=== PATIENT | female | born 1940 | race Asian ===

== ENCOUNTER 2021-09-07 06:34 | Inpatient (IN) | payer MEDICARE, OTHER, SELFPAY ==
[2021-09-07] VITALS (19 sets, daily range): BP systolic 125–177; BP diastolic 68–107; PULSE 70–90; RESP 16–20; TEMP 36.4–37.1; O2SAT 84–98; BMI 24.8; BMI 23.4
--- NOTE | 2021-09-07 06:50 | DI.RAD.S_ITS ---
PROCEDURE: XR HIP W PEL IF DONE RT 2V INDICATIONS: fall/pain TECHNIQUE: AP pelvis with lateral view(s) of the right hip(s). COMPARISON: None. FINDINGS: Bones: No definite fracture is identified. However, the right hip appears foreshortened. The right hip is rotated on the AP projection. No dislocation. Bilateral hip joint space narrowing. Pelvic ring appears intact. No suspicious bony lesions. Soft tissues: The visualized bowel gas pattern is normal. No suspicious soft tissue calcifications. Vascular calcifications. IMPRESSION: Exam is limited by right hip rotation. No definite fracture is identified. However, the right hip appears foreshortened. CT bony pelvis would be helpful for further evaluation. Alternatively, repeat radiographs could be performed. Recommendation was conveyed to the emergency department shortly after dictation. Dictated by: Mick Singh M.D. on 09/07/2021 at 8:22 Approved by: Mick Singh M.D. on 09/07/2021 at 8:27
[2021-09-07] MEDS: MORPHINE 2 MG/ML INJ IV ×3 (07:08→22:30)
[2021-09-07 07:22] LABS: Add Manual Diff / Slide Review NO; Basophils Absolute Auto 100 /uL (0-100); Basophils Percent Auto 0.6 % (0-2); Eosinophils Absolute Auto 200 /uL (0-450); Eosinophils Percent Auto 1.8 % (2-4); Hematocrit 35.7 % (36-46); Hemoglobin 11.7 g/dL (12.0-16.0); Lymphocytes Absolute Auto 1000 /uL (1100-4500); Lymphocytes Percent Auto 11.7 % (25-40); Mean Corpuscular HGB Conc 32.9 % (30-36); Mean Corpuscular Hemoglobin 32.2 PG (26-34); Monocytes Absolute Auto 600 /uL (0-900); Neutrophils Absolute Auto 6900 /uL (1500-7000); Neutrophils Percent Auto 78.9 % (50-75); Platelet Count 276 X10^3/uL (150-400); Red Blood Cell Count 3.65 X10^6/uL (4.0-5.2); Red Cell Distribution Width 15.9 % (11.6-14.8); White Blood Cell Count 8.8 X10^3/uL (4.5-11.0)
[2021-09-07 07:34] LABS: Alanine Aminotransferase 16 IU/L (<35); Albumin 3.5 g/dL (3.5-5.0); Alkaline Phosphatase 90 U/L (38-126); Aspartate Aminotransferase 26 IU/L (14-36); BUN Creatinine Ratio 26.6 (6-22); Bilirubin Total 0.7 mg/dL (0.2-1.3); Blood Urea Nitrogen 51 mg/dL (7-17); Calcium 8.4 mg/dL (8.4-10.2); Carbon Dioxide 25 mmol/L (22-32); Chloride 106 mmol/L (98-107); Estimated Glomerular Filt Rate 25.1 mL/min (>60); Globulin 3.4 g/dL (1.7-4.1); Glucose 132 mg/dL (80-110); HEMOLYSIS < 15 (0-50); Potassium 3.8 mmol/L (3.4-5.1); Sodium 140 mmol/L (137-145); Total Protein 6.9 g/dL (6.3-8.2)
--- NOTE | 2021-09-07 07:54 | ED.FALL ---
HPI - Fall General Chief Complaint: Fall Stated Complaint: GLF Time Seen by Provider: 09/07/21 06:50 Source: patient and EMS Mode of arrival: EMS Limitations: language barrier History of Present Illness HPI Narrative: Patient is an 80-year-old female who arrived by EMS for evaluation of right hip pain. She is on Eliquis for atrial fibrillation. Earlier this morning she was leaving the bathroom when she slipped and fell and landed on her left hip. She did not hit her head. No loss of consciousness. Is unable to walk afterwards. Reports no other injurie from the event. HPI and review of systems is somewhat limited given her language barrier. The provider who initially saw the patient tried to use the language line however the patient seem to have difficulty with this. They would ask her questions in Indonesian but the patient would answer in Lao. She stated that she was okay not using the language line when I performed my evaluation. Her was also at bedside. Related Data Home Medications Medication Instructions Recorded Confirmed CALCIUM CARBONATE/VITAMIN D3 #0 11/21/10 (Oyster Shell Calcium-Vit D Tab) FELODIPINE (Felodipine ER) #0 11/21/10 FLUTICASONE 50MCG DESI INH- #0 11/21/10 (FLUTICASONE PROPIONATE) Fluticasone Propionate/[place] #0 11/21/10 (Advair Diskus 100/50) HYDROCHLOROTHIAZIDE (Hydrodiuril / #0 11/21/10 Hctz) LISINOPRIL (Zestril / Prinivil) #0 11/21/10 MULTIVITAMIN (Multivitamin #0 11/21/10 -) Simvastatin (Zocor) #0 11/21/10 Tiotropium [place] (Spiriva) #0 11/21/10 Allergies Allergy/AdvReac Type Severity Reaction Status Date / Time No Known Drug Allergies Allergy Verified 09/07/21 06:48 Review of Systems Constitutional Constitutional: Denies headache(s) ENT Ears, Nose, Mouth, and Throat: Denies headache(s) Cardiovascular Cardiovascular: Reports system reviewed and no additional complaints, except as documented Respiratory Respiratory: Reports system reviewed and no additional complaints, except as documented Gastrointestinal Gastrointestinal: Reports system reviewed and no additional complaints, except as documented Musculoskeletal Comments: Right hip pain Neurologic Neurologic: Denies headache(s) Hematologic/Lymphatic On Anticoagulants: Yes Patient History Medical History Atrial fibrillation Chronic obstructive pulmonary disease Social History (Updated 09/07/21 @ 08:02 by Tristen Allan DO) marital status: household members: spouse lives independently: Yes Exam Initial Vital Signs Initial Vital Signs: Vital Signs Temperature 98.7 F 09/07/21 06:46 Pulse Rate 74 09/07/21 06:46 Respiratory Rate 18 09/07/21 06:46 Blood Pressure 172/83 H 09/07/21 06:46 Pulse Oximetry 98 09/07/21 06:46 Const General: cooperative and well developed HENMT Head: normal to inspection and normocephalic Resp Effort & Inspection: not labored, no respiratory distress and tachypneic Auscultation: clear to auscultation bilaterally Cardio Rate: regular rate and bradycardic Pulses: dorsalis pedis present on the right GI Inspection: normal to inspection Skin General: no rashes or lesions noted Neuro General: patient alert and patient awake Sensory Exam: no sensory deficits noted Extrem Other: Left lower extremity unremarkable. Her right ankle and right knee and right foot are unremarkable. Does have tenderness to palpation of the right hip. Upper extremities unremarkable. Psych Appearance: grossly normal and well kempt Course Orders Ordered: ED Orders 09/07/21 06:50 XR hip w pel if done RT 2V Stat 09/07/21 06:51 EKG-12 Lead Stat 09/07/21 07:15 CBC Auto Diff [Complete Blood Count AUTO DIFF] Stat CMP [Comprehensive Metabolic Panel] Stat 09/07/21 07:59 COVID19 - ADMIT ([employer] swab/PCR) Stat 09/07/21 08:04 Consult to Orthopedic Surgery Stat Sodium Chloride (Normal Saline 0.9%) 1,000 mls @ 125 mls/hr IV CONT DIMITRIS Last Admin: 09/07/21 08:03 Dose: 125 mls/hr Documented by: DUNCAN Discontinued Medications Morphine Sulfate (Morphine 2 Mg/Ml Inj) 2 mg IV NOW ONE Stop: 09/07/21 06:51 Last Admin: 09/07/21 07:08 Dose: 2 mg Documented by: DUNCAN Vital Signs Vital signs: Vital Signs - 8 hr 09/07/21 06:46 09/07/21 07:46 09/07/21 07:49 Temperature 98.7 F Pulse Rate 74 70 Respiratory Rate 18 16 Blood Pressure 172/83 H 145/68 H Pulse Oximetry 98 96 98 MDM - Fall Lab Data Attestation: I reviewed the patient's lab results. Result diagrams: 09/07/21 07:15 09/07/21 07:15 Labs: Lab Results 09/07/21 09/07/21 Range/Units 07:15 07:15 WBC 8.8 (4.5-11.0) X10^3/uL RBC 3.65 L (4.0-5.2) X10^6/uL Hgb 11.7 L (12.0-16.0) g/dL Hct 35.7 L (36-46) % MCV 98.0 (80-100) fL MCH 32.2 (26-34) PG MCHC 32.9 (30-36) % RDW 15.9 H (11.6-14.8) % Plt Count 276 (150-400) X10^3/uL Neut % (Auto) 78.9 H (50-75) % Lymph % (Auto) 11.7 L (25-40) % [place] % (Auto) 7.0 (3-14) % Eos % (Auto) 1.8 L (2-4) % Baso % (Auto) 0.6 (0-2) % Neut # (Auto) 6900 (3920-5099) /uL Lymph # (Auto) 1000 L (9097-2617) /uL [place] # (Auto) 600 (0-900) /uL Eos # (Auto) 200 (0-450) /uL Baso # (Auto) 100 (0-100) /uL Sodium 140 (137-145) mmol/L Potassium 3.8 (3.4-5.1) mmol/L Chloride 106 (98-107) mmol/L Carbon Dioxide 25 (22-32) mmol/L BUN 51 H (7-17) mg/dL Creatinine 1.92 H (0.52-1.04) mg/dL Estimated GFR 25.1 L (>60) mL/min BUN/Creatinine Ratio 26.6 H (6-22) Glucose 132 H (80-110) mg/dL Calcium 8.4 (8.4-10.2) mg/dL Total Bilirubin 0.7 (0.2-1.3) mg/dL AST 26 (14-36) IU/L ALT 16 (<35) IU/L Alkaline Phosphatase 90 (38-126) U/L Total Protein 6.9 (6.3-8.2) g/dL Albumin 3.5 (3.5-5.0) g/dL Globulin 3.4 (1.7-4.1) g/dL Albumin/Globulin Ratio 1.0 (1.0-2.8) ECG Data Attestation: I personally reviewed and interpreted this ECG as follows: Interpretation: Atrial fibrillation Ventricular rate of 77 Normal axis LVH Nonspecific ST T wave changes MDM Narrative Medical decision making narrative: Patient did not hit her head. No other injury except for the right hip. She does have a right hip fracture on the x-ray. She is alert oriented. Discussed the case with Dr. Adrian with orthopedics who will come and see the patient in the hospital. I then discussed the case with the hospitalist will admit for further evaluation treatment. I did discuss the injury with the patient and her at bedside. The both expressed understanding and agreement. Discharge Plan Departure Patient Disposition: Admitted As Inpatient Clinical Impression: Fracture of femoral neck, right, Atrial fibrillation
[2021-09-07] MEDS: SODIUM CHLORIDE 0.9% 1,000 ML 125 ML IV ×3 (08:03→19:38)
--- NOTE | 2021-09-07 08:10 | PC.NURSE ---
Provider Dr. Allan asked to speak to the ortho oncall consult at 08:05am. Called Dr. Adrian at 8:08 and connected providers at that time. Provider asked to speak to hospitalist at 8:11 and connected him with that provider at that time.
--- NOTE | 2021-09-07 08:29 | DI.CT.S_ITS ---
PROCEDURE: CT LE RT WO CON INDICATIONS: Eval Right hip TECHNIQUE: Noncontrast 3 mm axial sections acquired through the bony pelvis. Additional 3 mm axial sections acquired through the symptomatic hip joint, with coronal and sagittal reformats. COMPARISON: None. FINDINGS: Image quality: Excellent. Bones: Impacted, mildly angulated subcapital right femoral neck fracture on the right. No dislocation. Soft tissues: Fenton catheter tip is not in the uterus. Question Fenton catheter tip in vagina. Bladder is dilated. Extensive sigmoid diverticulosis without evidence of diverticulitis. Extensive calcifications in the distal aorta and iliacs and femorals. IMPRESSION: 1. Mildly angulated, impacted subcapital right femoral neck fracture. 2. Fenton catheter present in vagina. 3. Peripheral vascular disease. 4. Extensive sigmoid diverticulosis. Comment: Findings were discussed with Dr. Allan at the time of study dictation. Dictated by: Channing Candelario M.D. on 09/07/2021 at 8:49 Approved by: Channing Candelario M.D. on 09/07/2021 at 8:57
--- NOTE | 2021-09-07 08:39 | P.HP_ITS ---
History of Present Illness History of Present Illness Date Patient Seen: 09/07/21 Chief complaint: GLF Narrative: THIS IS AN 80-YEAR-OLD FEMALE WHO CAME TO THE HOSPITAL AFTER A GROUND LEVEL FALL. IT WAS REPORTED TO OUR STAFF THAT PATIENT FELL THIS MORNING AND COMPLAIN OF SIGNIFICANT PAIN WHEN BROUGHT TO THE ER, WORKUP IS SHOWING A FRACTURE ON THE RIGHT HEEL. ORTHOPEDIC SURGERY HAS BEEN MADE AWARE. AND WILL SEE THE PATIENT ON CONSULT. LABS AND VITAL SIGNS ARE FAIRLY STABLE. SOME POSSIBLE ACUTE ON CHRONIC KIDNEY DISEASE I APPRECIATED AND A CHEMISTRY PANEL DONE THIS MORNING. DOES REPORTED PAST MEDICAL HISTORY SIGNIFICANT FOR HYPERTENSION WELL CHRONIC ATRIAL FIBRILLATION AND COPD Patient History Medical History Atrial fibrillation Chronic obstructive pulmonary disease Comment: CHRONIC KIDNEY DISEASE STAGE III Family & Social History Social History: household members spouse lives independently Yes Safety & Behavioral: Feels Safe in Current Yes Environment Meds Home Medications and Allergies Home Medications Medication Instructions Recorded Confirmed Type amiodarone 200 mg tablet 200 mg PO DAILY 09/07/21 09/07/21 History apixaban 2.5 mg tablet (Eliquis) 2.5 mg PO BID 09/07/21 09/07/21 History carvedilol 6.25 mg tablet (Coreg) 6.25 mg PO BID 09/07/21 09/07/21 History fluticasone 250 mcg-salmeterol 50 1 inh INHALATION BID 09/07/21 09/07/21 History mcg/dose blistr powdr for inhalation (Advair Diskus) furosemide 40 mg tablet 40 mg PO DAILY 09/07/21 09/07/21 History lisinopril 10 mg tablet 10 mg PO BID 09/07/21 09/07/21 History potassium chloride 10 mEq 10 meq PO DAILY 09/07/21 09/07/21 History tablet,extended release simvastatin 10 mg tablet 10 mg PO QPM 09/07/21 09/07/21 History tiotropium bromide 18 mcg capsule 1 cap INHALATION DAILY 09/07/21 09/07/21 History with inhalation device (Spiriva with HandiHaler) Allergies Allergy/AdvReac Type Severity Reaction Status Date / Time No Known Drug Allergies Allergy Verified 09/07/21 06:48 Review of Systems Review of Systems Narrative: ALL SYSTEM REVIEWED. NEGATIVE UNLESS NOTED ABOVE IN HPI Exam Vital Signs (past 8 hours): - 09/07/21 06:46 09/07/21 07:46 09/07/21 07:49 Temperature 98.7 F Pulse Rate 74 70 Respiratory Rate 18 16 Blood Pressure 172/83 H 145/68 H Pulse Oximetry 98 96 98 09/07/21 08:00 09/07/21 08:01 09/07/21 08:30 Temperature Pulse Rate 90 81 83 Respiratory Rate 18 18 Blood Pressure 158/107 H 167/75 H Pulse Oximetry 97 97 96 Oxygen Delivery Method Room Air Narrative Exam Narrative: NO ACUTE DISTRESS. PATIENT IS ALERT ORIENTED X3. VITAL SIGNS STABLE HEAD ATRAUMATIC NORMOCEPHALIC NECK : SUPPLE WITHOUT ADENOPATHY NO CAROTID BRUITS EYE: EOMI, PERRLA, NORMAL CONJUNCTIVA; NO JAUNDICE CHEST: REGULAR RATE. NO RUBS. PMI IS NON DISPLACED. NO MURMURS; NORMAL S1- S2 PULMONARY: DECREASED BS OVER THE BASES. MILD BIBASILAR CRACKLES NOTED; NO INCREASED DULLNESS TO PERCUSSION ABDOMEN: SOFT. NONTENDER. NONDISTENDED. BOWEL SOUNDS ARE PRESENT IN ALL 4 QUADRANTS. EXTREMITIES: NO EDEMA.. NO CYANOSIS CLUBBING NOTED. DISCOMFORT WITH ACTIVE AND PASSIVE RANGE OF MOTION ON THE RIGHT EXPECTED. NO DEFORMITIES. NEURO: CRANIAL NERVES 2-12 GROSSLY INTACT. NO FOCAL NEUROLOGICAL DEFICIT NOTED. SENSATION IS INTACT ALL EXTREMITIES MSK: NORMAL RANGE OF MOTION FOR AGE. NO JOINT EFFUSION. SKIN: FAIR SKIN TURGOR. NO OPEN LESIONS PSYCH : APPROPRIATE MOOD AND AFFECT. ALERT AWAKE ORIENTED X3. NO ANXIETY Objective Labs Result Diagrams: 09/07/21 07:15 09/07/21 07:15 Labs: Laboratory Results - last 24 hr 09/07/21 09/07/21 07:15 07:15 WBC 8.8 RBC 3.65 L Hgb 11.7 L Hct 35.7 L MCV 98.0 MCH 32.2 MCHC 32.9 RDW 15.9 H Plt Count 276 Neut % (Auto) 78.9 H Lymph % (Auto) 11.7 L [place] % (Auto) 7.0 Eos % (Auto) 1.8 L Baso % (Auto) 0.6 Neut # (Auto) 6900 Lymph # (Auto) 1000 L [place] # (Auto) 600 Eos # (Auto) 200 Baso # (Auto) 100 Sodium 140 Potassium 3.8 Chloride 106 Carbon Dioxide 25 BUN 51 H Creatinine 1.92 H Estimated GFR 25.1 L BUN/Creatinine Ratio 26.6 H Glucose 132 H Calcium 8.4 Total Bilirubin 0.7 AST 26 ALT 16 Alkaline Phosphatase 90 Total Protein 6.9 Albumin 3.5 Globulin 3.4 Albumin/Globulin Ratio 1.0 Assessment & Plan Assessment & Plan narrative: PROBLEM LIST GROUND LEVEL FALL WITH FRACTURE ON THE RIGHT LOWER EXTREMITY. LYMPHATIC SURGERY ON BOARD RIGHT FEMORAL NECK FRACTURE. ORTHOPEDIC SURGERY CONSULTED ELINICK COAGULOPATHY. LAST DOSE 09/06 AROUND 1600 O'CLOCK ATRIAL FIBRILLATION PER HISTORY. APPEARED TO BE PERMANENT VERSUS CHRONIC ACUTE ON POSSIBLE CHRONIC KIDNEY DISEASE STAGE III. AVOID NEPHROTOXINS POSSIBLE OSTEOPOROSIS. TO BE EVALUATED WHEN APPROPRIATE OUTPATIENT PLAN PATIENT IS IN NO ACUTE DISTRESS NO URGENCY FOR SURGICAL PROCEDURE AT THIS POINT WILL START ON ORAL INTAKE SURGICAL PROCEDURE WOULD LIKELY BE DONE IN NEXT 3-4 DAYS HOWEVER AWAITING FOR FORMAL RECOMMENDATION FROM THE ORTHOPEDIC TEAM BED REST FOR NOW HOLD ELIQUIS OF COURSE START ON HEPARIN WHICH COULD BE BREECH PRIOR TO SURGERY STARTED ON IV FLUID MONITOR INPUT OUTPUT CLOSELY AVOID ALL NEPHROTOXINS PHARMACY TO DOSE ALL MEDICATIONS FOR GFR AEIOU DAILY LABS TO FOLLOW PAIN CONTROL WITH MORPHINE ADDITIONAL MANAGEMENT PER CLINICAL COURSE DURATION OF STAY 3-5 DAYS Time Spent With Patient Critical Care time: I spent a total of [] minutes of critical care time on this patient's care today; this time is exclusive of procedural time.
[2021-09-07 09:02] LABS: COVID19 - ADMIT (NP swab/PCR) Negative (Negative)
--- NOTE | 2021-09-07 09:39 | PC.NURSE ---
unable to place cope catheter, attempted x 3 with 2 rns, removed cope that was in vagina from ct
--- NOTE | 2021-09-07 11:12 | P.CONS_ITS ---
History of Present Illness Consult details Date Patient Seen: 09/07/21 Time Patient Seen: 11:00 Chief complaint: GLF Reason for consult: Initial pre op assessment for anesthesia. Narrative: 80 yo Vietnamese F s/p GLF with femoral neck fracture. Patient is on Eliquis, last dose 09/06/21 at 1700hr. Will need to delay surgery 72hr from last dose Eliquis. Patient understands more [place]ankan than she is able to speak. of 40 years with patient. Primary Physician: Diamond Carnes at [facility]. Optical Laboratory Manager: Dr. Cook at [facility] (last visit at [facility] within past 3 months. PMH: Afib, h/o CVA/TIA in 1999 (hospitalized [address] [facility]), COPD (no home O2), HTN, CKD (Stage 3), Diverticulosis (incidental finding per x-ray), PVD PSH: Cataracts, Cardioversion (~3 yrs ago) NKDA Meds (updated with ): Amiodarone (200mg/d), Carvedilol, Advair, Spiriva, Lisinopril, Lasix (40mg/d), Simvastatin, Eliquis 2.5mg bid (last dose yesterday, 09/06 at 1700h), Albuterol rescue inhaler (has not needed). Meds Home Medications and Allergies Home Medications Medication Instructions Recorded Confirmed Type amiodarone 200 mg tablet 200 mg PO DAILY 09/07/21 09/07/21 History apixaban 2.5 mg tablet (Eliquis) 2.5 mg PO BID 09/07/21 09/07/21 History carvedilol 6.25 mg tablet (Coreg) 6.25 mg PO BID 09/07/21 09/07/21 History fluticasone 250 mcg-salmeterol 50 1 inh INHALATION BID 09/07/21 09/07/21 History mcg/dose blistr powdr for inhalation (Advair Diskus) furosemide 40 mg tablet 40 mg PO DAILY 09/07/21 09/07/21 History lisinopril 10 mg tablet 10 mg PO BID 09/07/21 09/07/21 History potassium chloride 10 mEq 10 meq PO DAILY 09/07/21 09/07/21 History tablet,extended release simvastatin 10 mg tablet 10 mg PO QPM 09/07/21 09/07/21 History tiotropium bromide 18 mcg capsule 1 cap INHALATION DAILY 09/07/21 09/07/21 History with inhalation device (Spiriva with HandiHaler) Allergies Allergy/AdvReac Type Severity Reaction Status Date / Time No Known Drug Allergies Allergy Verified 09/07/21 06:48 Review of Systems Constitutional Comments: In obvious pain from hip fx; otherwise pleasant. Eyes Comments: deferred ENT Comments: Dental posts upper and lower for dentures (left them at home) that she wears for eating. Cardiovascular Comments: Denies CP. Known Afib. Respiratory Comments: No home O2. Limited activies. does housework. She does some cooking. Gastrointestinal Comments: neg hx Genitourinary Comments: Urinary frequency (per ). CKD per labs Musculoskeletal Comments: HPI Integumentary/Breasts Comments: deferred Neurologic Comments: grossly wnl Psychiatric Comments: deferred Endocrine Comments: Neg Hematologic/Lymphatic Comments: Anemia Allergic/Immunologic Comments: NKDA Exam Vital Signs (past 8 hours): - 09/07/21 06:46 09/07/21 07:46 09/07/21 07:49 Temperature 98.7 F Pulse Rate 74 70 Respiratory Rate 18 16 Blood Pressure 172/83 H 145/68 H Pulse Oximetry 98 96 98 09/07/21 08:00 09/07/21 08:01 09/07/21 08:30 Temperature Pulse Rate 90 81 83 Respiratory Rate 18 18 Blood Pressure 158/107 H 167/75 H Pulse Oximetry 97 97 96 09/07/21 08:39 09/07/21 09:00 09/07/21 09:30 Temperature Pulse Rate 82 82 81 Respiratory Rate 18 17 20 Blood Pressure 165/82 H 177/81 H 167/84 H Pulse Oximetry 84 L 95 09/07/21 10:00 Temperature Pulse Rate 86 Respiratory Rate 18 Blood Pressure 175/87 H Pulse Oximetry 95 Oxygen Delivery Method Room Air Resp Other: Equally distant BS Cardio Other: Irreg Irreg Rhythm w/o m/r/g Objective ECG Impression: Afib, rate 77, occas PVC, ILBBB, LVH per voltage criteria, infero-lat ST depression, cannot r/o subendocardial injury. Labs Result Diagrams: 09/07/21 07:15 09/07/21 07:15 Labs: Laboratory Results - last 24 hr 09/07/21 09/07/21 09/07/21 07:15 07:15 07:59 WBC 8.8 RBC 3.65 L Hgb 11.7 L Hct 35.7 L MCV 98.0 MCH 32.2 MCHC 32.9 RDW 15.9 H Plt Count 276 Neut % (Auto) 78.9 H Lymph % (Auto) 11.7 L [place] % (Auto) 7.0 Eos % (Auto) 1.8 L Baso % (Auto) 0.6 Neut # (Auto) 6900 Lymph # (Auto) 1000 L [place] # (Auto) 600 Eos # (Auto) 200 Baso # (Auto) 100 Sodium 140 Potassium 3.8 Chloride 106 Carbon Dioxide 25 BUN 51 H Creatinine 1.92 H Estimated GFR 25.1 L BUN/Creatinine Ratio 26.6 H Glucose 132 H Calcium 8.4 Total Bilirubin 0.7 AST 26 ALT 16 Alkaline Phosphatase 90 Total Protein 6.9 Albumin 3.5 Globulin 3.4 Albumin/Globulin Ratio 1.0 SARS-CoV-2 (PCR) Negative [facility] Medical History Atrial fibrillation Chronic obstructive pulmonary disease Social History marital status: household members: spouse lives independently: Yes Tobacco & Substance Use quit status: quit date established (1999) Assessment & Plan Assessment & Plan narrative: Patient with femoral neck fx, on anticoagulant that requires 72 hr wait. Will discuss with orthopedic surgeon and anesthesiologist on-call. Will try to obtain most recent chart records from PMD and consumer sales representative. Time Spent With Patient Time with patient: less than 30 minutes (20 min) Critical Care time: I spent a total of [20] minutes of critical care time on this patient's care today; this time is exclusive of procedural time.
--- NOTE | 2021-09-07 13:34 | OT.IPNOTE ---
Hold OT eval as pt to have sx upcoming.
--- NOTE | 2021-09-07 13:40 | PC.NURSE ---
Bladder scanned per JEAN-PAUL Cummings request. Scan shows 550 mL. Notified JEAN-PAUL Cummings and JEAN-PAUL Arnold.
[2021-09-07] MEDS: AMIODARONE 200 MG TABLET PO (14:22)
--- NOTE | 2021-09-07 14:45 | PT-IP ANOTE ---
Pt on hold, is waiting for surgery.
[2021-09-07] MEDS: ALBUTEROL/IPRATROPIUM 3 ML AMPUL INH ×2 (15:19→19:29)
--- NOTE | 2021-09-07 16:24 | PC.NURSE ---
Addendum entered by Clayton Box R.N. 09/07/21 18:20: continues at the bedside. Pt continues restful since Morphine IV. Continue to encourage Pt to relax her legs when moved. Enlisting her husbands help in this plan. Scd's to left leg applied. Pt taking some dinner. With encouragement from [place] her . Original Note: Pt alert to activity, reassureable. Relaxes when things are explained calmly and slowly. Some pantomime is needed. Pt able to express needs. attentive at bedside. Both [place]-SPARKS. Hip skin intact though bruise is noticeable. MS given with good effect.
[2021-09-07 16:27] LABS: Appearance Urine UA SL CLOUDY; Bilirubin Urine UA NEGATIVE (NEGATIVE); Color Urine UA YELLOW; Glucose Urine UA NEGATIVE (Negative); Ketones Urine UA NEGATIVE (NEGATIVE); Leukocyte Esterase Urine UA 1+ (NEGATIVE); Nitrite Urine UA POSITIVE (Negative); Occult Blood Urine UA 3+ (Negative); Protein Urine UA NEGATIVE (Negative); Urobilinogen Urine UA 0.2 E.U./dL (0.2)
[2021-09-07 16:34] LABS: Amorphous Sediment Urine 1+; Bacteria Urine Many (>30); Culture Indicated Urine Specimen Cultured; RBC Urine 1-5/HPF (0-5/HPF); Squamous Epithelial Cell Urine 0-1 /HPF (0-5/HPF); WBC Urine 10-30/HPF (0-5/HPF)
[2021-09-07] MEDS: BUDESONIDE 0.5 MG/2 ML NEB INH (19:29)
[2021-09-07] MEDS: carvediloL 3.125 MG TABLET 6.25 MG PO (22:22)
[2021-09-07] MEDS: ATORVASTATIN 20 MG TABLET 10 MG PO (22:24)
[2021-09-07] MEDS: HEPARIN 5,000 UNIT/ML VIAL 5000 UNIT SUBCUT (22:25)
[2021-09-07] MEDS: SODIUM CHLORIDE 0.9% FLUSH 10 ML IV (22:27)
[2021-09-08] VITALS (15 sets, daily range): BP systolic 118–155; BP diastolic 61–84; PULSE 66–112; RESP 16–22; TEMP 36.3–36.8; O2SAT 90–99
[2021-09-08] MEDS: SODIUM CHLORIDE 0.9% 1,000 ML 125 ML IV ×2 (04:24→13:17)
[2021-09-08] MEDS: MORPHINE 2 MG/ML INJ IV ×4 (04:24→23:01)
[2021-09-08 05:49] LABS: Add Manual Diff / Slide Review NO; Basophils Absolute Auto 0 /uL (0-100); Basophils Percent Auto 0.5 % (0-2); Eosinophils Absolute Auto 100 /uL (0-450); Eosinophils Percent Auto 1.6 % (2-4); Hematocrit 31.4 % (36-46); Hemoglobin 10.6 g/dL (12.0-16.0); Lymphocytes Absolute Auto 600 /uL (1100-4500); Lymphocytes Percent Auto 7.9 % (25-40); Mean Corpuscular HGB Conc 33.8 % (30-36); Mean Corpuscular Hemoglobin 33.2 PG (26-34); Mean Corpuscular Volume 98.4 fL (80-100); Monocytes Absolute Auto 800 /uL (0-900); Neutrophils Absolute Auto 6300 /uL (1500-7000); Platelet Count 227 X10^3/uL (150-400); Red Blood Cell Count 3.19 X10^6/uL (4.0-5.2); Red Cell Distribution Width 15.5 % (11.6-14.8); White Blood Cell Count 7.8 X10^3/uL (4.5-11.0)
[2021-09-08 05:56] LABS: Alanine Aminotransferase 15 IU/L (<35); Albumin 2.9 g/dL (3.5-5.0); Albumin Globulin Ratio 0.9 (1.0-2.8); Alkaline Phosphatase 89 U/L (38-126); Aspartate Aminotransferase 29 IU/L (14-36); BUN Creatinine Ratio 24.5 (6-22); Bilirubin Total 1.2 mg/dL (0.2-1.3); Blood Urea Nitrogen 36 mg/dL (7-17); Calcium 8.1 mg/dL (8.4-10.2); Carbon Dioxide 24 mmol/L (22-32); Chloride 111 mmol/L (98-107); Estimated Glomerular Filt Rate 34.1 mL/min (>60); Globulin 3.1 g/dL (1.7-4.1); Glucose 131 mg/dL (80-110); HEMOLYSIS < 15 (0-50); Phosphorous 3.6 mg/dL (2.8-4.1); Potassium 3.6 mmol/L (3.4-5.1); Sodium 140 mmol/L (137-145)
[2021-09-08] MEDS: ALBUTEROL/IPRATROPIUM 3 ML AMPUL INH ×3 (08:00→20:06)
[2021-09-08] MEDS: BUDESONIDE 0.5 MG/2 ML NEB INH ×2 (08:01→20:06)
[2021-09-08] MEDS: carvediloL 3.125 MG TABLET 6.25 MG PO ×2 (08:13→22:58)
[2021-09-08] MEDS: AMIODARONE 200 MG TABLET PO (08:13)
--- NOTE | 2021-09-08 09:10 | OT.IPNOTE ---
Pt is on bedrest for now until able to have sx, therefore discharge OT eval orders.
--- NOTE | 2021-09-08 09:14 | PT-IP ANOTE ---
Pt still awaiting surgery. She is on bedrest. Will d/c PT order and await new orders post-op. Please include any hip precautions and WB post-op. Thank you.
--- NOTE | 2021-09-08 11:06 | PM.CN ---
History of Present Illness Consult details Date Patient Seen: 09/08/21 Time Patient Seen: 11:07 Chief complaint: Right hip pain s/p GLF Reason for consult: Right femoral neck fracture Narrative: The patient is complaining of moderate to severe right hip pain. She fell in the bathroom yesterday. She is on Eliquis for AFib and will need to be off her anticoagulation for at least 72 hours prior to hip surgery. Patient denies any new numbness or tingling. No fevers, chills, night sweats. Meds Home Medications and Allergies Home Medications Medication Instructions Recorded Confirmed Type amiodarone 200 mg tablet 200 mg PO DAILY 09/07/21 09/07/21 History apixaban 2.5 mg tablet (Eliquis) 2.5 mg PO BID 09/07/21 09/07/21 History carvedilol 6.25 mg tablet (Coreg) 6.25 mg PO BID 09/07/21 09/07/21 History fluticasone 250 mcg-salmeterol 50 1 inh INHALATION BID 09/07/21 09/07/21 History mcg/dose blistr powdr for inhalation (Advair Diskus) furosemide 40 mg tablet 40 mg PO DAILY 09/07/21 09/07/21 History lisinopril 10 mg tablet 10 mg PO BID 09/07/21 09/07/21 History potassium chloride 10 mEq 10 meq PO DAILY 09/07/21 09/07/21 History tablet,extended release simvastatin 10 mg tablet 10 mg PO QPM 09/07/21 09/07/21 History tiotropium bromide 18 mcg capsule 1 cap INHALATION DAILY 09/07/21 09/07/21 History with inhalation device (Spiriva with HandiHaler) Allergies Allergy/AdvReac Type Severity Reaction Status Date / Time No Known Drug Allergies Allergy Verified 09/07/21 06:48 Exam Vital Signs (past 8 hours): - 09/08/21 04:00 09/08/21 08:01 09/08/21 08:08 Temperature 98.2 F Pulse Rate 89 78 84 Respiratory Rate 16 18 22 Blood Pressure 121/81 Pulse Oximetry 94 91 94 09/08/21 08:10 09/08/21 08:13 Temperature 98.2 F Pulse Rate 66 86 Respiratory Rate 17 Blood Pressure 130/61 130/61 Pulse Oximetry 93 Oxygen Delivery Method Room Air Oxygen Flow Rate 0 Narrative Exam Narrative: Pleasant 80-year-old female, resting in bed, no acute distress with rest, moderate distress with movement. Bilateral lower extremity motor function is grossly intact. Calves are soft, nontender to palpation. Sensation is grossly intact to light touch bilaterally. She experiences sharp right groin pain with any movement of the right leg. Objective Labs Result Diagrams: 09/08/21 04:58 09/08/21 04:58 Labs: Laboratory Results - last 24 hr 09/07/21 09/08/21 09/08/21 15:41 04:58 04:58 WBC 7.8 RBC 3.19 L Hgb 10.6 L Hct 31.4 L MCV 98.4 MCH 33.2 MCHC 33.8 RDW 15.5 H Plt Count 227 Neut % (Auto) 80.0 H Lymph % (Auto) 7.9 L [place] % (Auto) 10.0 Eos % (Auto) 1.6 L Baso % (Auto) 0.5 Neut # (Auto) 6300 Lymph # (Auto) 600 L [place] # (Auto) 800 Eos # (Auto) 100 Baso # (Auto) 0 Sodium 140 Potassium 3.6 Chloride 111 H Carbon Dioxide 24 BUN 36 H Creatinine 1.47 H Estimated GFR 34.1 L BUN/Creatinine Ratio 24.5 H Glucose 131 H Calcium 8.1 L Phosphorus 3.6 Total Bilirubin 1.2 AST 29 ALT 15 Alkaline Phosphatase 89 Total Protein 6.0 L Albumin 2.9 L Globulin 3.1 Albumin/Globulin Ratio 0.9 L Urine Color Yellow Urine Appearance Sl cloudy Urine pH 5.0 Ur Specific [place] 1.010 Urine Protein Negative Urine Glucose (UA) Negative Urine Ketones Negative Urine Occult Blood 3+ H Urine Nitrate Positive H Urine Bilirubin Negative Urine Urobilinogen 0.2 Ur Leukocyte Esterase 1+ H Urine RBC 1-5/hpf Urine WBC 10-30/hpf H Ur Squamous Epith Cells 0-1 /hpf Amorphous Sediment 1+ Urine Bacteria Many (>30) H Ur Culture Indicated? Specimen cultured [facility] Medical History Atrial fibrillation Chronic obstructive pulmonary disease Social History marital status: household members: spouse and significant other lives independently: Yes Tobacco & Substance Use Smoking Status: Never smoker quit status: quit date established (1999) alcohol intake: current Assessment & Plan Assessment & Plan narrative: -right femoral neck fracture -continue with current heparin, will need to be discontinued 6 hours prior to surgery -continue with current pain regimen -will need to be off Eliquis for 72 hours. The soonest she would be safe for surgery would be 09/09 at 5:00 p.m. Unfortunately, due to scheduling issues in the OR, the soonest we anticipate bringing her back to the OR would be Friday09/11/2021 Time Spent With Patient Critical Care time: I spent a total of [] minutes of critical care time on this patient's care today; this time is exclusive of procedural time.
[2021-09-08] MEDS: HEPARIN 5,000 UNIT/ML VIAL 5000 UNIT SUBCUT (12:08)
--- NOTE | 2021-09-08 14:13 | PM.PN.1 ---
Subjective Subjective Interval history: VERY PLEASANT 80-YEAR-OLD FEMALE [facility]. SHE HAS A RIGHT FEMORAL NECK FRACTURE. SHE HAS A HISTORY OF ATRIAL FIBRILLATION AND IS ON ELIQUIS. SURGICAL REPAIR IS ON HOLD FOR 72 HOURS FROM THE LAST DOES POSSIBLE SURGICAL REPAIR PLANNED FOR Friday TODAY I SPOKE TO PATIENT'S WITH HER SIGNIFICANT OTHER AT BEDSIDE. NO INCREASING SHORTNESS OF BREATH. NO COUGH. NO FEVER OR CHILLS. FEELING BETTER. NO CHEST PAIN. NO CHEST PALPITATIONS. NO NAUSEA OR VOMITING. Exam Vital Signs (past 8 hours): - 09/08/21 08:01 09/08/21 08:08 09/08/21 08:10 Temperature 98.2 F Pulse Rate 78 84 66 Respiratory Rate 18 22 17 Blood Pressure 130/61 Pulse Oximetry 91 94 93 09/08/21 08:13 Temperature Pulse Rate 86 Respiratory Rate Blood Pressure 130/61 Pulse Oximetry Oxygen Delivery Method Room Air Oxygen Flow Rate 0 Narrative Exam Narrative: NO ACUTE DISTRESS.? PATIENT IS ALERT ORIENTED X3. THIN VITAL SIGNS STABLE HEAD ATRAUMATIC NORMOCEPHALIC NECK : SUPPLE WITHOUT ADENOPATHY NO CAROTID BRUITS EYE:? EOMI, PERRLA, NORMAL CONJUNCTIVA; NO JAUNDICE CHEST:? REGULAR RATE.? ? NO RUBS.? PMI IS NON DISPLACED.? NO MURMURS; NORMAL S1-S2 PULMONARY:? DECREASED BS OVER THE BASES.? MILD BIBASILAR CRACKLES NOTED; NO INCREASED DULLNESS TO PERCUSSION ABDOMEN:? SOFT.? NONTENDER.? NONDISTENDED.? BOWEL SOUNDS ARE PRESENT IN ALL 4 QUADRANTS. EXTREMITIES: NO EDEMA..? NO CYANOSIS CLUBBING NOTED. DISCOMFORT WITH ACTIVE AND PASSIVE RANGE OF MOTION ON THE RIGHT EXPECTED.? NO DEFORMITIES. NEURO:? CRANIAL NERVES 2-12 GROSSLY INTACT. NO FOCAL NEUROLOGICAL DEFICIT NOTED.? SENSATION IS INTACT ALL EXTREMITIES MSK:? NORMAL RANGE OF MOTION FOR AGE.? NO JOINT EFFUSION. SKIN:? FAIR SKIN TURGOR.? NO OPEN LESIONS PSYCH :? APPROPRIATE MOOD AND AFFECT.? ALERT AWAKE ORIENTED X3.? NO ANXIETY Objective Labs Result Diagrams: 09/08/21 04:58 09/08/21 04:58 Labs: Laboratory Results - last 24 hr 09/07/21 09/08/21 09/08/21 15:41 04:58 04:58 WBC 7.8 RBC 3.19 L Hgb 10.6 L Hct 31.4 L MCV 98.4 MCH 33.2 MCHC 33.8 RDW 15.5 H Plt Count 227 Neut % (Auto) 80.0 H Lymph % (Auto) 7.9 L [place] % (Auto) 10.0 Eos % (Auto) 1.6 L Baso % (Auto) 0.5 Neut # (Auto) 6300 Lymph # (Auto) 600 L [place] # (Auto) 800 Eos # (Auto) 100 Baso # (Auto) 0 Sodium 140 Potassium 3.6 Chloride 111 H Carbon Dioxide 24 BUN 36 H Creatinine 1.47 H Estimated GFR 34.1 L BUN/Creatinine Ratio 24.5 H Glucose 131 H Calcium 8.1 L Phosphorus 3.6 Total Bilirubin 1.2 AST 29 ALT 15 Alkaline Phosphatase 89 Total Protein 6.0 L Albumin 2.9 L Globulin 3.1 Albumin/Globulin Ratio 0.9 L Urine Color Yellow Urine Appearance Sl cloudy Urine pH 5.0 Ur Specific [place] 1.010 Urine Protein Negative Urine Glucose (UA) Negative Urine Ketones Negative Urine Occult Blood 3+ H Urine Nitrate Positive H Urine Bilirubin Negative Urine Urobilinogen 0.2 Ur Leukocyte Esterase 1+ H Urine RBC 1-5/hpf Urine WBC 10-30/hpf H Ur Squamous Epith Cells 0-1 /hpf Amorphous Sediment 1+ Urine Bacteria Many (>30) H Ur Culture Indicated? Specimen cultured [facility] Medical History Atrial fibrillation Chronic obstructive pulmonary disease Social History (Updated 09/07/21 @ 08:02 by Tristen Allan DO) marital status: household members: spouse and significant other lives independently: Yes Smoking Status: Never smoker quit status: quit date established (1999) alcohol intake: current Assessment & Plan Assessment & Plan narrative: PROBLEM LIST ?GROUND LEVEL FALL WITH FRACTURE ON THE RIGHT LOWER EXTREMITY.? ORTHOPEDIC SURGERY ON BOARD ?RIGHT FEMORAL NECK FRACTURE.? ORTHOPEDIC SURGERY? CONSULTED. POSSIBLE PLAN FOR SURGERY ON 10/11 ?ELIQUIS COAGULOPATHY. ? LAST DOSE 09/06? AROUND 1600 O'CLOCK ?ATRIAL FIBRILLATION PER HISTORY.? APPEARED TO BE PERMANENT VERSUS CHRONIC ?ACUTE ON POSSIBLE CHRONIC KIDNEY DISEASE STAGE III.? AVOID NEPHROTOXINS ?POSSIBLE OSTEOPOROSIS.? TO BE EVALUATED WHEN APPROPRIATE OUTPATIENT URINARY TRACT INFECTION. LIKELY GRAM-NEGATIVE RODS .ON ROCEPHIN ?PLAN URINE SHOWING POSITIVE NITRITES INDICATIVE OF A URINARY TRACT INFECTION WILL START ON ROCEPHIN FOLLOW URINE CULTURE AND ADJUST ANTIBIOTIC THERAPY INDICATED PLAN FOR SURGICAL REPAIR OF THE RIGHT LOWER EXTREMITY FRACTURE NEXT WEEK. POSSIBLE FRIDAY CONTINUE CURRENT MANAGEMENT OTHERWISE 09/07 ? PATIENT IS IN NO ACUTE DISTRESS ?NO URGENCY FOR SURGICAL PROCEDURE AT THIS POINT ?WILL START ON ORAL INTAKE ?SURGICAL PROCEDURE WOULD LIKELY BE DONE IN NEXT 3-4 DAYS ?HOWEVER AWAITING FOR? FORMAL RECOMMENDATION FROM THE ORTHOPEDIC TEAM ?BED REST FOR NOW ? HOLD ELIQUIS OF COURSE ?START ON HEPARIN WHICH COULD BE BREECH? PRIOR TO SURGERY ?STARTED ON IV FLUID ?MONITOR INPUT OUTPUT CLOSELY ?AVOID ALL NEPHROTOXINS ?PHARMACY TO DOSE ALL MEDICATIONS FOR GFR AEIOU ?DAILY LABS TO FOLLOW ?PAIN CONTROL WITH MORPHINE ?ADDITIONAL MANAGEMENT PER CLINICAL COURSE ?DURATION OF STAY 3-5 DAYS Time Spent With Patient Critical Care time: I spent a total of [] minutes of critical care time on this patient's care today; this time is exclusive of procedural time.
--- NOTE | 2021-09-08 15:35 | CM.IDA ---
Initial DCP Assessment Note Pt is an 80 yo female, resident of [place], arrives w/spouse after a GLF at home w/subsequent hip fx. Patient speaks Montenegrin and limited Latvian. Patient is on Eliquis for atrial fibrillation, according to Shraddha LOPEZ; Dr Mensah will be completing this hip surgery which is now scheduled for Friday09.11.21. Meanwhile, patient will be here for pain management while awaiting hip repair. PCP: None Listed Payer: [facility]/[place] Met w/patient and spouse Catracho this afternoon, introduced role. Collection of information made difficult by patient's limited Latvian, no dentures, and spouse being very hard of hearing. In addition, spouse appeared suspicious of this CLINICAL APPLICATION CONSULTANT as we began discussing DCP options. Patient/spouse have been for 40+ years, have no children and no local family members. Patient is indp in most ADLs, spouse available to assist as needed, spouse drives. Spouse hopeful patient will be cleared for DC home, says the surgeon indicated she (patient) would be able to walk after the surgery. Discussed SNF for recovery/rehab and patient/spouse would be agreeable to short SNF stay if recommended. No SNF options reviewed at this time. Spouse requests CM team come back after surgery and therapy eval to review needs at that time. CM team will follow closely and reassess needs post operatively. NELLIE Broderick Discharge Planning/Care Management CM Discharge Assessment Start: 09/08/21 15:32 Freq: Status: Active Protocol: Document 09/08/21 15:32 SANDRA (Rec: 09/08/21 15:35 SANDRA [id number]) Discharge Planning Assessment Assigned Web Content Coordinator NELLIE Zimmerman DPOA/Assigned Designee Name Catracho Frederick spouse Contact Information [phone], Advance Directives? Yes Advance Directives on File No History Provided By Patient,Significant Other Household Members spouse,significant other Type of transporation used prior to Relies on Others admit Independent with ADL's Difficult to assess Patient/Family Preference Halfway Facility
[2021-09-08] MEDS: cefTRIAXone 1,000 MG in SODIUM CHLORIDE 0.9% 100 ML 200 ML IV (15:59)
[2021-09-08] MEDS: ATORVASTATIN 20 MG TABLET 10 MG PO (23:00)
[2021-09-09] VITALS (12 sets, daily range): BP systolic 107–142; BP diastolic 55–68; PULSE 72–95; RESP 16–20; TEMP 36.4–37.2; O2SAT 93–96
[2021-09-09] MEDS: MORPHINE 2 MG/ML INJ IV ×2 (04:10→13:33)
--- NOTE | 2021-09-09 04:13 | PC.NURSE ---
Confused and agitated since start of shift>attempting to get out of bed and refusing all help. Pt. having visual and auditory hallucinations, angry that I was in her house had insisted that I broke in, calling out for to come and remove me. I tried to reorient her < however she would not listen. I offered to call her so she could speak with him and I attempted to hand her the phone. Pt grabbed it angrily and swung it at my head, but I got out of the way. I went out of the room and spoke with her spouse on the phone. He decided that it would be best if he came in. Pt was monitored closely until his arrival. spouse Kwadwo was able to calm her and convinced her it was in her best interest to take all her medications. pt was medicated and then slept for nearly four hours. Spouse said he would call us if she began to awaken. hourly rounds were performed with looking through the glass to allow maximum rest but @ 0330 pt yelped and I entered to find her catheter laying on the bed next to her with the balloon intact. she had also dislodged her IV. Both were replaced. Cope UOP showed Hematuria and pt expressed discomfort with placement. cope was secured to left leg with adhesive pad. [address] IV were mad the last was successful and IVF restarted and Pt. was medicated with Morphine 2 mg IVP. Pt. resting with Kwadwo at bedside
[2021-09-09 04:29] LABS: Add Manual Diff / Slide Review NO; Basophils Absolute Auto 0 /uL (0-100); Basophils Percent Auto 0.5 % (0-2); Eosinophils Absolute Auto 0 /uL (0-450); Eosinophils Percent Auto 0.3 % (2-4); Hematocrit 32.7 % (36-46); Hemoglobin 10.9 g/dL (12.0-16.0); Lymphocytes Absolute Auto 600 /uL (1100-4500); Lymphocytes Percent Auto 7.4 % (25-40); Mean Corpuscular HGB Conc 33.2 % (30-36); Mean Corpuscular Hemoglobin 32.8 PG (26-34); Mean Corpuscular Volume 98.8 fL (80-100); Monocytes Absolute Auto 1100 /uL (0-900); Monocytes Percent Auto 13.2 % (3-14); Neutrophils Absolute Auto 6700 /uL (1500-7000); Neutrophils Percent Auto 78.6 % (50-75); Platelet Count 206 X10^3/uL (150-400); Red Blood Cell Count 3.31 X10^6/uL (4.0-5.2); Red Cell Distribution Width 15.8 % (11.6-14.8); White Blood Cell Count 8.5 X10^3/uL (4.5-11.0)
[2021-09-09 04:36] LABS: Alanine Aminotransferase 76 IU/L (<35); Albumin 2.9 g/dL (3.5-5.0); Albumin Globulin Ratio 0.9 (1.0-2.8); Alkaline Phosphatase 256 U/L (38-126); Aspartate Aminotransferase 314 IU/L (14-36); BUN Creatinine Ratio 25.5 (6-22); Bilirubin Total 2.6 mg/dL (0.2-1.3); Blood Urea Nitrogen 36 mg/dL (7-17); Calcium 8.3 mg/dL (8.4-10.2); Carbon Dioxide 21 mmol/L (22-32); Chloride 113 mmol/L (98-107); Estimated Glomerular Filt Rate 35.8 mL/min (>60); Globulin 3.2 g/dL (1.7-4.1); Glucose 138 mg/dL (80-110); HEMOLYSIS 21 (0-50); Phosphorous 3.9 mg/dL (2.8-4.1); Potassium 3.9 mmol/L (3.4-5.1); Sodium 142 mmol/L (137-145); Total Protein 6.1 g/dL (6.3-8.2)
[2021-09-09] MEDS: SODIUM CHLORIDE 0.9% 1,000 ML 125 ML IV ×2 (06:59→23:31)
[2021-09-09] MEDS: BUDESONIDE 0.5 MG/2 ML NEB INH ×2 (09:16→20:02)
[2021-09-09] MEDS: ALBUTEROL/IPRATROPIUM 3 ML AMPUL INH ×3 (09:16→20:02)
[2021-09-09] MEDS: AMIODARONE 200 MG TABLET PO (09:26)
[2021-09-09] MEDS: HEPARIN 5,000 UNIT/ML VIAL 5000 UNIT SUBCUT ×2 (09:26→21:07)
[2021-09-09] MEDS: cefTRIAXone 1,000 MG in SODIUM CHLORIDE 0.9% 100 ML 200 ML IV (09:26)
[2021-09-09] MEDS: carvediloL 3.125 MG TABLET 6.25 MG PO ×2 (09:26→21:06)
--- NOTE | 2021-09-09 10:18 | P.CONS_ITS ---
History of Present Illness Consult details Date Patient Seen: 09/09/21 Time Patient Seen: 10:19 Chief complaint: Right hip pain s/p GLF Reason for consult: right hip pain Requesting provider: Tristen Allan Narrative: Ms. Frederick is a 80 yo F who had a ground level fall and sustained right femoral neck fx. Patient is on eliquis. Current plan is to proceed to surgery on Friday with Dr. Mensah. Meds Home Medications and Allergies Home Medications Medication Instructions Recorded Confirmed Type amiodarone 200 mg tablet 200 mg PO DAILY 09/07/21 09/07/21 History apixaban 2.5 mg tablet (Eliquis) 2.5 mg PO BID 09/07/21 09/07/21 History carvedilol 6.25 mg tablet (Coreg) 6.25 mg PO BID 09/07/21 09/07/21 History fluticasone 250 mcg-salmeterol 50 1 inh INHALATION BID 09/07/21 09/07/21 History mcg/dose blistr powdr for inhalation (Advair Diskus) furosemide 40 mg tablet 40 mg PO DAILY 09/07/21 09/07/21 History lisinopril 10 mg tablet 10 mg PO BID 09/07/21 09/07/21 History potassium chloride 10 mEq 10 meq PO DAILY 09/07/21 09/07/21 History tablet,extended release simvastatin 10 mg tablet 10 mg PO QPM 09/07/21 09/07/21 History tiotropium bromide 18 mcg capsule 1 cap INHALATION DAILY 09/07/21 09/07/21 History with inhalation device (Spiriva with HandiHaler) Allergies Allergy/AdvReac Type Severity Reaction Status Date / Time No Known Drug Allergies Allergy Verified 09/07/21 06:48 Review of Systems Review of Systems ROS: Yes All systems reviewed with the patient and are negative except as otherwise documented Exam Vital Signs (past 8 hours): - 09/09/21 04:00 09/09/21 04:01 09/09/21 07:45 Temperature 97.5 F L 98.6 F Pulse Rate 95 H 80 Respiratory Rate 17 16 Blood Pressure 142/68 H 141/65 H Pulse Oximetry 96 94 94 09/09/21 09:23 Temperature Pulse Rate 73 Respiratory Rate 20 Blood Pressure Pulse Oximetry 93 Oxygen Delivery Method Room Air Oxygen Flow Rate 0 Extrem Other: right groin pain, did not check for motion due to pain, neurovascularly intact w/o s/s of DVT. Objective Labs Result Diagrams: 09/09/21 03:53 09/09/21 03:53 Labs: Laboratory Results - last 24 hr 09/09/21 09/09/21 03:53 03:53 WBC 8.5 RBC 3.31 L Hgb 10.9 L Hct 32.7 L MCV 98.8 MCH 32.8 MCHC 33.2 RDW 15.8 H Plt Count 206 Neut % (Auto) 78.6 H Lymph % (Auto) 7.4 L [place] % (Auto) 13.2 Eos % (Auto) 0.3 L Baso % (Auto) 0.5 Neut # (Auto) 6700 Lymph # (Auto) 600 L [place] # (Auto) 1100 H Eos # (Auto) 0 Baso # (Auto) 0 Sodium 142 Potassium 3.9 Chloride 113 H Carbon Dioxide 21 L BUN 36 H Creatinine 1.41 H Estimated GFR 35.8 L BUN/Creatinine Ratio 25.5 H Glucose 138 H Calcium 8.3 L Phosphorus 3.9 Total Bilirubin 2.6 H AST 314 H ALT 76 H Alkaline Phosphatase 256 H D Total Protein 6.1 L Albumin 2.9 L Globulin 3.2 Albumin/Globulin Ratio 0.9 L PFSH Medical History Atrial fibrillation Chronic obstructive pulmonary disease Social History marital status: household members: spouse and significant other lives independently: Yes Tobacco & Substance Use Smoking Status: Never smoker quit status: quit date established (1999) alcohol intake: current Assessment & Plan Assessment & Plan narrative: Right femoral neck fx. Currently holding [employer] for surgery on Friday. Medical management per hospitalist. Time Spent With Patient Critical Care time: I spent a total of [] minutes of critical care time on this patient's care today; this time is exclusive of procedural time.
--- NOTE | 2021-09-09 15:22 | P.PN_ITS ---
Subjective Subjective Date Patient Seen: 09/09/21 Interval history: BRIEF HPI VERY PLEASANT 80-YEAR-OLD FEMALE [facility]. ? SHE HAS A RIGHT FEMORAL NECK FRACTURE. ? SHE HAS A HISTORY OF ATRIAL FIBRILLATION AND IS ON ELIQUIS. ?? SURGICAL REPAIR IS ON HOLD? FOR 72-84 HOURS? FROM THE LAST DOSE ?POSSIBLE SURGICAL ? REPAIR PLANNED FOR Friday ?TODAY PATIENT DID NOT HAVE ANY SIGNIFICANT COMPLAINTS SHE REPORTS SHE ONLY HAVE DISCOMFORT TO THE RIGHT HIP DURING OTHERWISE SHE DENIES ANY SHORTNESS OF BREATH. NO COUGH. ? NO CHEST PAIN.? NO CHEST PALPITATIONS. ? NO NAUSEA OR VOMITING. Exam Vital Signs (past 8 hours): - 09/09/21 07:45 09/09/21 08:00 09/09/21 09:23 Temperature 98.6 F Pulse Rate 80 73 Respiratory Rate 16 20 Blood Pressure 141/65 H Pulse Oximetry 94 96 93 09/09/21 12:00 09/09/21 13:00 Temperature 99.0 F Pulse Rate 75 72 Respiratory Rate 19 20 Blood Pressure 127/63 Pulse Oximetry 96 95 Oxygen Delivery Method Room Air Oxygen Flow Rate 0 Narrative Exam Narrative: NO ACUTE DISTRESS.? PATIENT IS ALERT ORIENTED X3. THIN VITAL SIGNS STABLE HEAD ATRAUMATIC NORMOCEPHALIC NECK : SUPPLE WITHOUT ADENOPATHY NO CAROTID BRUITS EYE:? EOMI, PERRLA, NORMAL CONJUNCTIVA; NO JAUNDICE CHEST:? REGULAR RATE.? ? NO RUBS.? PMI IS NON DISPLACED.? NO MURMURS; NORMAL S1- S2 PULMONARY:? DECREASED BS OVER THE BASES.? MILD BIBASILAR CRACKLES NOTED; NO INCREASED DULLNESS TO PERCUSSION ABDOMEN:? SOFT.? NONTENDER.? NONDISTENDED.? BOWEL SOUNDS ARE PRESENT IN ALL 4 QUADRANTS. EXTREMITIES: NO EDEMA..? NO CYANOSIS CLUBBING NOTED. DISCOMFORT WITH ACTIVE AND PASSIVE RANGE OF MOTION ON THE RIGHT EXPECTED.? NO DEFORMITIES. NEURO:? CRANIAL NERVES 2-12 GROSSLY INTACT. NO FOCAL NEUROLOGICAL DEFICIT NOTED.? SENSATION IS INTACT ALL EXTREMITIES MSK:? NORMAL RANGE OF MOTION FOR AGE IN THE UNAFFECTED EXTREMITIES. HOWEVER SIGNIFICANT DISCOMFORT WITH ACTIVE AND PASSIVE AND A MOTION ON THE RIGHT LOWER EXTREMITY..? NO GROSS DEFORMITIES SKIN:? FAIR SKIN TURGOR.? NO OPEN LESIONS PSYCH :? APPROPRIATE MOOD AND AFFECT.? ALERT AWAKE ORIENTED X3.? NO ANXIETY Objective Labs Result Diagrams: 09/09/21 03:53 09/09/21 03:53 Labs: Laboratory Results - last 24 hr 09/09/21 09/09/21 03:53 03:53 WBC 8.5 RBC 3.31 L Hgb 10.9 L Hct 32.7 L MCV 98.8 MCH 32.8 MCHC 33.2 RDW 15.8 H Plt Count 206 Neut % (Auto) 78.6 H Lymph % (Auto) 7.4 L [place] % (Auto) 13.2 Eos % (Auto) 0.3 L Baso % (Auto) 0.5 Neut # (Auto) 6700 Lymph # (Auto) 600 L [place] # (Auto) 1100 H Eos # (Auto) 0 Baso # (Auto) 0 Sodium 142 Potassium 3.9 Chloride 113 H Carbon Dioxide 21 L BUN 36 H Creatinine 1.41 H Estimated GFR 35.8 L BUN/Creatinine Ratio 25.5 H Glucose 138 H Calcium 8.3 L Phosphorus 3.9 Total Bilirubin 2.6 H AST 314 H ALT 76 H Alkaline Phosphatase 256 H D Total Protein 6.1 L Albumin 2.9 L Globulin 3.2 Albumin/Globulin Ratio 0.9 L PFSH Medical History Atrial fibrillation Chronic obstructive pulmonary disease Social History (Updated 09/07/21 @ 08:02 by Tristen Allan DO) marital status: household members: spouse and significant other lives independently: Yes Smoking Status: Never smoker quit status: quit date established (1999) alcohol intake: current Assessment & Plan Assessment & Plan narrative: PROBLEM LIST ?GROUND LEVEL FALL WITH FRACTURE ON THE RIGHT LOWER EXTREMITY.? ? ORTHOPEDIC SURGERY ON BOARD ?RIGHT FEMORAL NECK FRACTURE.? ORTHOPEDIC SURGERY? CONSULTED.? POSSIBLE PLAN FOR SURGERY ON 10/11 ?ELIQUIS COAGULOPATHY. ? LAST DOSE 09/06? AROUND 1600 O'CLOCK ?ATRIAL FIBRILLATION PER HISTORY.? APPEARED TO BE PERMANENT VERSUS CHRONIC ?ACUTE ON POSSIBLE CHRONIC KIDNEY DISEASE STAGE III.? AVOID NEPHROTOXINS ?POSSIBLE OSTEOPOROSIS.? TO BE EVALUATED WHEN APPROPRIATE OUTPATIENT ?URINARY TRACT INFECTION. ? E COLI? .ON ROCEPHIN ?PLAN 09/09 AWAITING SURGICAL INTERVENTION FOR REPAIR OF A RIGHT HIP FRACTURE PLAN FOR SURGERY ON 09/11 VITAL SIGNS AND LABS ARE FAIRLY STABLE PAIN CONTROL WITH ORAL AND IV MEDICATION INDICATED FOLLOW DAILY LABS CONTINUE TO ELIQUIS PATIENT IS ON HEPARIN FOR DVT PROPHYLACTICS URINE IS GROWING E COLI PATIENT WILL BE CONTINUED ON ROCEPHIN FOR NOW THIS COULD BE CHANGED TO ORAL AGENT POSTOPERATIVELY ADDITIONAL ORDERS PER CLINICAL COURSE 09/08 ?URINE SHOWING POSITIVE NITRITES INDICATIVE OF A URINARY TRACT INFECTION ?WILL START ON ROCEPHIN ?FOLLOW URINE CULTURE AND ADJUST ANTIBIOTIC THERAPY INDICATED ?PLAN FOR SURGICAL REPAIR OF THE RIGHT LOWER EXTREMITY FRACTURE? NEXT WEEK.? POSSIBLE FRIDAY ?CONTINUE CURRENT MANAGEMENT OTHERWISE 09/07 ? PATIENT IS IN NO ACUTE DISTRESS ?NO URGENCY FOR SURGICAL PROCEDURE AT THIS POINT ?WILL START ON ORAL INTAKE ?SURGICAL PROCEDURE WOULD LIKELY BE DONE IN NEXT 3-4 DAYS ?HOWEVER AWAITING FOR? FORMAL RECOMMENDATION FROM THE ORTHOPEDIC TEAM ?BED REST FOR NOW ? HOLD ELIQUIS OF COURSE ?START ON HEPARIN WHICH COULD BE BREECH? PRIOR TO SURGERY ?STARTED ON IV FLUID ?MONITOR INPUT OUTPUT CLOSELY ?AVOID ALL NEPHROTOXINS ?PHARMACY TO DOSE ALL MEDICATIONS FOR GFR AEIOU ?DAILY LABS TO FOLLOW ?PAIN CONTROL WITH MORPHINE ?ADDITIONAL MANAGEMENT PER CLINICAL COURSE ?DURATION OF STAY 3-5 DAYS Time Spent With Patient Critical Care time: I spent a total of [] minutes of critical care time on this patient's care today; this time is exclusive of procedural time.
[2021-09-09] MEDS: ATORVASTATIN 20 MG TABLET 10 MG PO (21:06)
[2021-09-09] MEDS: SODIUM CHLORIDE 0.9% FLUSH 10 ML IV (21:06)
[2021-09-09] MEDS: SENNOSIDES 8.6 MG TABLET 17.2 MG PO (21:08)
[2021-09-10] VITALS (12 sets, daily range): BP systolic 139–153; BP diastolic 68–87; PULSE 64–100; RESP 16–20; TEMP 36.1–37.1; O2SAT 92–96
[2021-09-10 05:41] LABS: Add Manual Diff / Slide Review NO; Basophils Absolute Auto 100 /uL (0-100); Basophils Percent Auto 0.7 % (0-2); Eosinophils Absolute Auto 100 /uL (0-450); Eosinophils Percent Auto 0.9 % (2-4); Hemoglobin 9.8 g/dL (12.0-16.0); Lymphocytes Absolute Auto 600 /uL (1100-4500); Lymphocytes Percent Auto 7.4 % (25-40); Mean Corpuscular HGB Conc 33.7 % (30-36); Mean Corpuscular Hemoglobin 33.4 PG (26-34); Mean Corpuscular Volume 99.2 fL (80-100); Monocytes Absolute Auto 600 /uL (0-900); Monocytes Percent Auto 8.2 % (3-14); Neutrophils Absolute Auto 6300 /uL (1500-7000); Neutrophils Percent Auto 82.8 % (50-75); Platelet Count 204 X10^3/uL (150-400); Red Blood Cell Count 2.92 X10^6/uL (4.0-5.2); White Blood Cell Count 7.6 X10^3/uL (4.5-11.0)
[2021-09-10 05:52] LABS: Alanine Aminotransferase 83 IU/L (<35); Albumin 2.5 g/dL (3.5-5.0); Albumin Globulin Ratio 0.8 (1.0-2.8); Alkaline Phosphatase 213 U/L (38-126); Aspartate Aminotransferase 100 IU/L (14-36); BUN Creatinine Ratio 21.1 (6-22); Bilirubin Total 0.8 mg/dL (0.2-1.3); Blood Urea Nitrogen 28 mg/dL (7-17); Calcium 7.9 mg/dL (8.4-10.2); Carbon Dioxide 18 mmol/L (22-32); Chloride 116 mmol/L (98-107); Estimated Glomerular Filt Rate 38.3 mL/min (>60); Globulin 3.1 g/dL (1.7-4.1); Glucose 111 mg/dL (80-110); HEMOLYSIS < 15 (0-50); Phosphorous 3.3 mg/dL (2.8-4.1); Potassium 3.7 mmol/L (3.4-5.1); Sodium 141 mmol/L (137-145); Total Protein 5.6 g/dL (6.3-8.2)
[2021-09-10] MEDS: ALBUTEROL/IPRATROPIUM 3 ML AMPUL INH ×3 (08:22→20:00)
[2021-09-10] MEDS: BUDESONIDE 0.5 MG/2 ML NEB INH ×2 (08:22→20:00)
[2021-09-10] MEDS: cefTRIAXone 1,000 MG in SODIUM CHLORIDE 0.9% 100 ML 200 ML IV (09:17)
[2021-09-10] MEDS: AMIODARONE 200 MG TABLET PO (09:18)
[2021-09-10] MEDS: HEPARIN 5,000 UNIT/ML VIAL 5000 UNIT SUBCUT (09:18)
[2021-09-10] MEDS: carvediloL 3.125 MG TABLET 6.25 MG PO ×2 (09:18→22:25)
[2021-09-10] MEDS: SODIUM CHLORIDE 0.9% 1,000 ML 125 ML IV (09:18)
[2021-09-10] MEDS: MORPHINE 2 MG/ML INJ IV ×2 (15:05→22:26)
--- NOTE | 2021-09-10 16:30 | P.PN_ITS ---
Subjective Subjective Date Patient Seen: 09/10/21 Interval history: 80-year-old female admitted to the hospital following a ground level fall having suffered a right femoral neck fracture. Patient was previously on Eliquis for atrial fibrillation. Her Eliquis has been held and she will be taken to the OR tomorrow. She denies any pain except for movement. She has no shortness of breath. Exam Vital Signs (past 8 hours): - 09/10/21 09:00 09/10/21 11:57 09/10/21 13:00 Temperature 96.9 F L 98.2 F Pulse Rate 87 92 H Respiratory Rate 18 20 Blood Pressure 139/72 143/82 H Pulse Oximetry 95 96 Oxygen Delivery Method Room Air Oxygen Flow Rate 0 Narrative Exam Narrative: Pleasant female lying in bed in no obvious distress Resp Other: Lungs clear to auscultation Cardio Other: Cardiac exam: Irregularly irregular, normal S1-S2 GI Other: Abdomen: Soft and nontender Extrem Other: Extremities: No edema Objective Labs Result Diagrams: 09/10/21 05:30 09/10/21 05:30 Labs: Laboratory Results - last 24 hr 09/10/21 09/10/21 05:30 05:30 WBC 7.6 RBC 2.92 L Hgb 9.8 L Hct 29.0 L MCV 99.2 MCH 33.4 MCHC 33.7 RDW 16.0 H Plt Count 204 Neut % (Auto) 82.8 H Lymph % (Auto) 7.4 L Letcher % (Auto) 8.2 Eos % (Auto) 0.9 L Baso % (Auto) 0.7 Neut # (Auto) 6300 Lymph # (Auto) 600 L Letcher # (Auto) 600 Eos # (Auto) 100 Baso # (Auto) 100 Sodium 141 Potassium 3.7 Chloride 116 H Carbon Dioxide 18 L BUN 28 H Creatinine 1.33 H Estimated GFR 38.3 L BUN/Creatinine Ratio 21.1 Glucose 111 H Calcium 7.9 L Phosphorus 3.3 Total Bilirubin 0.8 AST 100 H ALT 83 H Alkaline Phosphatase 213 H Total Protein 5.6 L Albumin 2.5 L Globulin 3.1 Albumin/Globulin Ratio 0.8 L PFSH Medical History Atrial fibrillation Chronic obstructive pulmonary disease Social History (Updated 11/26/21 @ 08:02 by Tristen Allan DO) marital status: household members: spouse and significant other lives independently: Yes Smoking Status: Never smoker quit status: quit date established (1999) alcohol intake: current Assessment & Plan Assessment & Plan narrative: Right femoral neck fracture -likely secondary to osteoporosis -plans for definitive surgery tomorrow Atrial fibrillation -rate controlled -Eliquis on hold -continue Coreg, amiodarone Hypertension -continue lisinopril and furosemide Chronic kidney disease -will continue to follow Urinary tract infection -urine growing EColi -continue Rocephin Will hold IV fluids, resume when the patient is NPO Continue PT OT I have utilized all available methods to review update and confirm the patient's current medications Time Spent With Patient Critical Care time: I spent a total of [] minutes of critical care time on this patient's care today; this time is exclusive of procedural time.
[2021-09-10] MEDS: ATORVASTATIN 20 MG TABLET 10 MG PO (22:24)
[2021-09-10] MEDS: SENNOSIDES 8.6 MG TABLET 17.2 MG PO (22:25)
[2021-09-10] MEDS: SODIUM CHLORIDE 0.9% FLUSH 10 ML IV (22:26)
[2021-09-11] VITALS (19 sets, daily range): BP systolic 86–163; BP diastolic 51–95; PULSE 67–106; RESP 14–20; TEMP 36–37.7; O2SAT 91–98; BMI 23.4
[2021-09-11] MEDS: SODIUM CHLORIDE 0.9% 1,000 ML 125 ML IV (00:18)
[2021-09-11] MEDS: ALBUTEROL/IPRATROPIUM 3 ML AMPUL INH ×3 (08:09→17:42)
[2021-09-11] MEDS: BUDESONIDE 0.5 MG/2 ML NEB INH (08:16)
--- NOTE | 2021-09-11 08:56 | PM.PN.1 ---
Subjective Subjective Date Patient Seen: 09/11/21 Interval history: 80 y/o female admitted to the hospital for a right femoral neck fracture. She has atrial fibrillation and was on eliquis. Her surgery was postponed until today due to her anticoagulation. She denies pain or shortness of breath. She is anxious to get her surgery completed Exam Vital Signs (past 8 hours): - 09/11/21 01:17 09/11/21 04:12 09/11/21 08:14 Temperature 98.2 F 98.4 F Pulse Rate 74 98 H 93 H Respiratory Rate 16 16 18 Blood Pressure 121/51 L 132/83 Pulse Oximetry 93 93 92 Oxygen Delivery Method Room Air Oxygen Flow Rate 0 Narrative Exam Narrative: Pleasant female lying in bed in no obvious distress Resp Other: Lungs clear to auscultation Cardio Other: Cardiac exam: Irregularly irregular normal S1-S2 GI Other: Abdomen: Soft nontender nondistended Other: Fenton catheter in place Extrem Other: Extremity no edema Objective Labs Result Diagrams: 09/10/21 05:30 09/10/21 05:30 [facility] Medical History Atrial fibrillation Chronic obstructive pulmonary disease Social History (Updated 09/07/21 @ 08:02 by Tristen Allan DO) marital status: household members: spouse and significant other lives independently: Yes Smoking Status: Never smoker quit status: quit date established (1999) alcohol intake: current Assessment & Plan Assessment & Plan narrative: Right femoral neck fracture -likely secondary to osteoporosis -plans for definitive surgery today at 3:00 pm Atrial fibrillation -rate controlled -Eliquis on hold -continue Coreg, amiodarone Hypertension -continue lisinopril and furosemide Chronic kidney disease -will continue to follow -avoid nephrotoxic agents Urinary tract infection -Urine growing EColi -continue Rocephin PT/OT following surgery Time Spent With Patient Critical Care time: I spent a total of [] minutes of critical care time on this patient's care today; this time is exclusive of procedural time.
--- NOTE | 2021-09-11 09:05 | PC.NURSE ---
NPO since midnight for surgery on RLE today. Catracho overnight w/ her inthe room. he left this morning for a few hours. IVF started after NPO status began. patient apperas comfortable. PRN morphine x 1 for s/sx BTP on NOC shift.
[2021-09-11] MEDS: cefTRIAXone 1,000 MG in SODIUM CHLORIDE 0.9% 100 ML 200 ML IV (09:47)
[2021-09-11] MEDS: AMIODARONE 200 MG TABLET PO (09:47)
[2021-09-11] MEDS: carvediloL 3.125 MG TABLET 6.25 MG PO (09:47)
[2021-09-11] MEDS: LACTATED RINGERS 1,000 ML 42 ML IV (09:49)
--- NOTE | 2021-09-11 14:36 | PC.NURSE ---
Patient was picked up for surgery. IV intact, cope in place.
--- NOTE | 2021-09-11 15:03 | PM.PREOP ---
Pre-operative Note COVID-19 COVID-19 status: Negative Result date/Date tested (Pos, Neg/Pending): 09/07/21 Interval Note History & Physical reviewed/Exam performed by Physician: Yes Changes to H&P: No
--- NOTE | 2021-09-11 15:04 | PM.OP.1 ---
Operative Date/Time/Diagnoses Date of procedure: 09/11/21 Time of procedure: 15:30 Pre-op diagnosis: Right femoral neck fracture Post-op diagnosis: same Procedure & Clinicians Procedure: Right hip unipolar replacement Same procedure as scheduled: Yes Indications: This 80-year-old female who fell at home in the bathroom and noted the acute onset of severe right hip pain. She was admitted to the hospitalist service but was on and anticoagulated and has been medically stabilized for several days waiting for her anticoagulant to wear off. She has a grossly displaced right femoral neck fracture and is brought the operating room for right hip unipolar replacement. Surgeon: Angelique Mensah System Operator: Gaurav Contreras Anesthesia Type: General and Spinal Operative Notes Findings: Mild right hip osteoarthritis, soft bone, acceptable stability Closure Type: primary Specimen(s): none sent Prosthetic devices, grafts, tissues, transplants, or devices: Mensah and Nephew cemented Synergy 11 cemented, 42 mm head, -3 neck, Applied: drain(s) Estimated Blood Loss (mL): 250 Blood products transfused: none Procedure in detail: The patient was seen in the pre-operative area, where the patient identified the right hip as the operative site and this was marked with my initials. The patient received pre-operative antibiotics and was taken to the operating room and placed on the operative table in the supine position after satisfactory anesthesia. A certified orthotic fitter out was performed. Patient was placed in the lateral decubitus position and all bony prominences were carefully padded and the arms were appropriately position. The right lower extremity was prepared from the ankle to the iliac crest with ChloroPrep in the usual fashion and draped through sterile drapes. The hip was approached through posterolateral approach. Dissection was carried out down through skin and subcutaneous tissues. The fascia was opened. Gelpi retractors were placed. A Charnley retractor was placed. A small amount of inflamed bursa was resected. The piriformis was identified and protected. The other short external rotators and capsule were carefully stripped from the posterior aspect of the femur. They were tagged and carefully retracted. The femoral neck was brought up and an osteotomy was made of the residual femoral neck approximately 1 fingerbreadth above the lesser trochanter. The head was removed without difficulty. It was carefully sized. The acetabulum was meticulously irrigated with normal saline. There were [mild] changes in the acetabulum. The acetabulum was carefully protected with an E tape. The canal was opened with a box cutting osteotome, followed by a T-handled reamer and a lateralizing reamer. The tapered reamers were then used, followed by sequential broaching. A trial head and neck were then placed and the hip relocated and checked for leg length and stability. The patient was stable in the position of sleep, of squatting, and could be put through a range of motion with 45 degrees internal rotation without dislocation. At 90 degrees flexion, internal rotation to 80 degrees was possible before dislocation. This was felt to be satisfactory and the appropriate components were opened, and the trials were removed. The femoral canal was sized and a distal cement restrictor was placed. The bone was meticulously cleaned with pulse lavage. The canal was packed with vaginal packing with epinephrine. Antibiotics cement was mixed and carefully pressurized into the femoral canal. The femoral component was placed without difficulty. A repeat trial reduction showed good range of motion and stability. We did a brief Betadine soak after the cement had hardened. Patient had good range of motion and stability. The final head and neck were placed after carefully irrigating the wound. The capsulomuscular flap was then repaired to the greater trochanter though an awl hole using the tag sutures. The short external rotators were repaired with Tevdek. A deep drain was placed and brought out anteriorly. The fascia yumiko was closed with Vicryl. The subcutaneous layer was closed with interrupted 3-0 Vicryl, and the skin with a running 3-0 V-Lock suture and SteriStrips. An Aquacel Ag dressing was applied and the patient was taken to recovery having tolerated the procedure well. Complications: none Post-operative Condition: stable Disposition: Acute Care Plan for aftercare: The patient will be maintained on a standard total hip replacement protocol with weight bearing as tolerated and posterior hip precautions. The patient will receive eliquis and sequential compression devices for DVT prophylaxis. The patient will be discharged home when safe for the home environment.
[2021-09-11 15:08] LABS: COVID19 -Nasal RAPID Negative (Negative)
--- NOTE | 2021-09-11 15:18 | SUR.HOLD ---
Pre-op holding patient brought to surgery with at side. awake and alert. states here for rt hip fracture. Dr Mensah in and consented patient . vss. no pain at rest. c/o hunger. no po since before midnite except for sip with med this am for BP per Floor RN and patient. stat covid sent off. rt foot: warm,pink,less than 3 sec refill. denies numb/tingling sensation. faint dp pulse palpated. 1500-Ready for OR . Anesthesia here to see patient. PERSONAL INVESTMENT ADVISER updated .
[2021-09-11] MEDS: CEFAZOLIN 2 GM/20 ML SYRINGE IV (15:34)
--- NOTE | 2021-09-11 16:16 | SUR.OPER ---
Lateral on padded OR bed. Gel axillary roll. Arms secured on padded armboard with pillow supporting top arm. Padded hip positioner braces x4 - anterior and posterior chest and pelvis. Additional gel pad used anterior pelvis. Gel pad under bottom leg from knee to foot and secured with tape over sheet.
[2021-09-11] MEDS: BUPIVACAINE 0.25% (PF) 30 ML, EPINEPHrine 0.15 MG INJ (16:32)
[2021-09-11] MEDS: BUPIVACAINE LIPOSOME 266 MG/20 ML VIAL INJ (16:35)
[2021-09-11] MEDS: TRANEXAMIC ACID 1,000 MG VIAL 2000 MG INJ (16:46)
--- NOTE | 2021-09-11 17:34 | DI.RAD.S_ITS ---
PROCEDURE: XR HIP W PEL IF DONE RT 2V INDICATIONS: POST OP RIGHT HIP TECHNIQUE: AP pelvis and lateral view of the right hip acquired. COMPARISON: [facility], JESSICA, XR HIP W PEL IF DONE RT 2V, 09/07/2021, 7:32. FINDINGS: Bones: Patient is status post right hip hemiarthroplasty, with hardware components in expected positions. The hip joint appears congruent. The visualized bony structures appear intact. Soft tissues: Overlying postoperative changes are noted. No suspicious soft tissue densities. IMPRESSION: Status post right hip arthroplasty with expected postoperative findings. Dictated by: Roc De La Rosa M.D. on 09/11/2021 at 17:50 Approved by: Roc De La Rosa M.D. on 09/11/2021 at 17:51
[2021-09-11] MEDS: LACTATED RINGERS 1,000 ML 125 ML IV (18:15)
--- NOTE | 2021-09-11 19:39 | PC.NURSE ---
Patient received back from surgery to room 223 at approx 1815. Patient smiling, denies pain. Aquacel dressing to right posterior hip CDI with ice in place. Patient is hungry and thirsty, her is at the bedside and has brought her food. Fenton remains in place and intact draining clear yellow urine. Vital signs stable, received from PACU on 2L NC at 92-97%.
[2021-09-11] MEDS: ASPIRIN EC 81 MG TABLET PO (20:21)
[2021-09-11] MEDS: DOCUSATE 100 MG CAPSULE PO (20:21)
[2021-09-11] MEDS: IBUPROFEN 400 MG TABLET PO (20:21)
[2021-09-11] MEDS: ACETAMINOPHEN 325 MG TABLET 650 MG PO (20:21)
--- NOTE | 2021-09-11 22:44 | PC.NURSE ---
Patient is alert and oriented. Breath sounds CTA but on oxygen at 4L/min per NC with sat in high 90's so is being weaned down and is currently on oxygen at 2L/min. HR irregular w/hx of afib. Denied nausea. BT present; has not had BM since prior to admit; given Colace. Indwelling catheter is patent; urine is clear, dark yellow. Is able to move self in bed. Just returned from surgery on previous shift and has not yet been out of bed. Aquacel dressing to right hip is CDI. Denied pain. Bilateral calf SCD's applied at shift change. Fall risk score is high and bed alarm is activated. Spouse rooming in.
[2021-09-12] VITALS (11 sets, daily range): BP systolic 104–139; BP diastolic 52–82; PULSE 60–101; RESP 14–20; TEMP 36.1–36.6; O2SAT 94–100
[2021-09-12] MEDS: CEFAZOLIN 2 GM/20 ML SYRINGE 1 GM IV (00:10)
[2021-09-12] MEDS: IBUPROFEN 400 MG TABLET PO ×6 (00:52→20:54)
[2021-09-12] MEDS: LACTATED RINGERS 1,000 ML 125 ML IV (01:52)
--- NOTE | 2021-09-12 08:16 | P.PN_ITS ---
Subjective Subjective Date Patient Seen: 09/12/21 Time Patient Seen: 08:16 Interval history: Patient's pain is [id number]. Denies fever or chills. No nausea or vomiting. Exam Vital Signs (past 8 hours): - 09/12/21 04:05 09/12/21 07:20 Temperature 97.2 F L Pulse Rate 73 77 Respiratory Rate 20 15 Blood Pressure 139/82 129/66 Pulse Oximetry 97 98 Oxygen Delivery Method Nasal Cannula Oxygen Flow Rate 0 Narrative Exam Narrative: Pleasant 80-year-old female resting comfortably in bed in no apparent distress. Right hip dressing is Clean, dry, intact.. Motor functions intact distal bilateral lower extremities. Sensation grossly intact to light touch bilateral lower extremities. Objective Labs Result Diagrams: 09/10/21 05:30 09/10/21 05:30 Labs: Laboratory Results - last 24 hr 09/11/21 14:44 SARS-CoV-2 (PCR) Negative [facility] Medical History Atrial fibrillation Chronic obstructive pulmonary disease Social History marital status: household members: spouse and significant other lives independently: Yes Smoking Status: Never smoker quit status: quit date established (1999) alcohol intake: current Assessment & Plan Post-op Postoperative Procedures: Procedures Operation Date: 09/11/21 14:15 Actual Procedure Side Surgeon p Hip Hemiarthroplasty Right Angelique Mensah MD Postoperative day: 1 Postoperative status narrative: Stable status post right hip unipolar repla cement Postoperative plan narrative: Patient be maintained on standard total hip replacement protocol with weight-bearing as tolerated and posterior hip precaution Multimodal pain management [place] and SCDs for DVT prophylaxis Disposition home when medically stable per hospitalist Follow-up with [facility] in 2 weeks
[2021-09-12] MEDS: ALBUTEROL/IPRATROPIUM 3 ML AMPUL INH ×3 (08:17→18:17)
--- NOTE | 2021-09-12 08:32 | PC.NURSE ---
During pass down I was told Pt. is ACHS. She did not have this in patient worklist. Blood glucose at 0800 was 141.
[2021-09-12 08:48] LABS: Hematocrit 30.8 % (36-46); Hemoglobin 10.1 g/dL (12.0-16.0)
[2021-09-12] MEDS: ACETAMINOPHEN 325 MG TABLET 650 MG PO ×3 (09:29→20:52)
[2021-09-12] MEDS: AMIODARONE 200 MG TABLET PO (09:30)
[2021-09-12] MEDS: carvediloL 3.125 MG TABLET 6.25 MG PO ×2 (09:30→20:53)
[2021-09-12] MEDS: cefTRIAXone 1,000 MG in SODIUM CHLORIDE 0.9% 100 ML 200 ML IV (09:31)
[2021-09-12] MEDS: ASPIRIN EC 81 MG TABLET PO ×2 (09:31→20:53)
[2021-09-12] MEDS: DOCUSATE 100 MG CAPSULE PO ×2 (09:31→20:54)
--- NOTE | 2021-09-12 10:45 | PT.IIE ---
Current Diagnoses Unspecified intracapsular fracture of right femur, initial encounter for closed fracture (09/07/21) Surgery Performed Operation Date: 09/11/21 14:15 Actual Procedures p Hip Hemiarthroplasty(Right) - Angelique Mensah MD Medical History (Last Reviewed 09/12/21 @ 08:17 by Gaurav Contreras PA-C) Atrial fibrillation Chronic obstructive pulmonary disease Physical Therapy Inpatient Evaluation/Re-Eval M1 PT/OT-IP Prior Functional Status Start: 09/08/21 08:35 Freq: Status: Active Protocol: Document 09/12/21 10:45 AB (Rec: 09/12/21 12:59 AB [id number]) Medical Review Prior Functional Status Medical History Reviewed Yes Communication has difficulty following directions; pt first preferred language is Syriac but able to understand some [place] but spouse stated that pt has memory issues even prior to hospitalization Mobility and Gait spouse stated that pt is modified independent with all mobilities and ambulation without AD but tend to furniture cruise Social History Household Members spouse Living Arrangements House Number of Floors (Floors) One Floor Number of Stairs To Enter/Railing? 2 steps without rails to enter Home Environment Standard Height Toilet,Tub/ Shower Home Equipment Hand Held Shower,Grab Bars In Shower Additional Social History Comment pt has a walk in tub shower pt has a standard walker M2 PT-IP Current Condition Start: 09/08/21 08:35 Freq: Status: Active Protocol: Document 09/12/21 10:45 AB (Rec: 09/12/21 12:59 AB [email or web address]) Physical Therapy Current Condition Current Condition Evaluation Date 09/12/21 Treatment Diagnosis R femoral neck fx s/p unipolar hip arthroplasty; difficulty in walking Onset Date 09/07/21 M3 PT-IP Subjective Start: 09/08/21 08:35 Freq: Status: Active Protocol: Document 09/12/21 10:45 AB (Rec: 09/12/21 12:59 AB [id number]) Subjective Physical Therapy Visit Type Type Initial Evaluation Visit Start Time 10:45 Visit Stop Time 11:25 Total Visit Minutes 40 Number of TURNAROUND ENGINEER Visits 0 Physical Therapy Visit Comments Patient Comments agreed to do PT Therapy Pain Assessment Pain When Pain Assessed During Mobility Pain Present Pain Present Pain Reported Location Right Hip Scale Used pain scale not stated Pain Behaviors Facial Grimacing,Guarding, Wincing Pain Management Techniques Apply Cold,Distraction, Modification of Treatment,Re- positioning,Timing of Activity with Medications M4 PT-IP Mobility and Gait Start: 09/08/21 08:35 Freq: Status: Active Protocol: Document 09/12/21 10:45 AB (Rec: 09/12/21 12:59 AB [email or web address]) PT-Bed Mobility Assessment Supine to Sit Supine to Sit Maximum Assistance,2 Person Assistance,Head of Bed Elevated Scooting Scooting to Edge of Bed Dependent PT-Transfer Assessment Sit to and From Stand Sit to and from Stand Total Assistance,2 Person Assistance,Use of Upper Extremities Equipment Transfer Assistive Device Gait Belt,Front Wheeled Walker Orthotic/Prosthetic Devices or Brace: No Transfers Transfer Destination Chair Transfer Technique Stand Pivot Transfer Ability Level of Assist Maximum Assistance,2 Person Assistance,Use of Upper Extremities Comments Mobility Comments pt in bed and spouse in room. pt first language is spanish and has difficulty following directions. spouse stated that pt has memory issues even prior to hospitalization. educated pt and spouse regarding R posterior hip precautions. pt completed supine to sit max Ax 1-2 with HOB elevated. required initial max A for sitting balanc colby EOB with increase posterior trunk lean. postioned pt and cued for balance and was able to sit with CGA. completed sit to stand max A x 2 and max cues. (+) B knee buckling and pt had to be assisted back to bed and total A x 2 for scooting back to bed. completed stand pivot transfer max A x 2 and max cues with PT assisting pt in front and nurse behind pt. positioned pt on the chair. chair alarm set up. call light and table placed within reach. Left pt with spouse in room. Gait Assessment Comments Gait Comments unable at this time PT-Balance Assessment Sitting Balance and Reactions Static Sitting Balance Ability Fair Dynamic Sitting Balance Ability Poor Standing Balance and Reactions Static Standing Balance Ability Poor Dynamic Standing Balance Ability Poor Device Used FWW M5 PT-IP Objective Assessments Start: 09/08/21 08:35 Freq: Status: Active Protocol: Document 09/12/21 10:45 AB (Rec: 09/12/21 12:59 AB [email or web address]) Orientation Orientation/Cognition Level of Alertness Confusional State Orientation Name Language Function Ability Citizen [place] as Second Language Safety Awareness Decreased Safety Awareness Memory Description Short Term Impaired Gross Range of Motion Lower Extremity ROM Assessment Within Functional Limits Strength Lower Extremity Strength Assessment Bilaterally Impaired Comments Strength Comments LLE: 4-/5 RLE: 3+/5 Sensation Assessment Sensation Gross Sensation WNL Muscle Tone Muscle Tone WNL Yes M6 PT-IP Treatment Start: 09/08/21 08:35 Freq: Status: Active Protocol: Document 09/12/21 10:45 AB (Rec: 09/12/21 12:59 AB [id number]) Physical Therapy Treatment Education Education Provided Precautions,Weight Bearing Status,Post-Op Packet,Safety M7 PT-IP Assessment and Plan Start: 09/08/21 08:35 Freq: Status: Active Protocol: Document 09/12/21 10:45 AB (Rec: 09/12/21 12:59 AB [id number]) PT Summary Assessment and Plan Potential Rehabilitation Potential Good Status of Condition at Evaluation Evolving Summary Impairments Pain,ROM,Strength,Balance, Coordination,Sensation,Tone, Cognition,Bed Mobility, Transfers,Gait,Activity Tolerance Assessment Summary pt requiring max A x 2 to total A x 2 with mobility and unable to ambulate at this time. pt presents with (+) B knee buckling during standing requiring max A x 2 and max cues. Pt will require SNF rehab to improve strength and functional mobility. Goals Bed Mobility Goal Minimal Assistance Transfer Goal Minimal Assistance,Front Wheeled Walker Gait Goal Minimal Assistance,Front Wheel Walker Gait Distance 50 Other Goals improve bed mobility, transfers SBA using FWW improve ambulation using FWW SBA 100 ft Days to Meet Goals 10 Frequency of Treatment Frequency Of Treatment Twice a Day Treatment Plan Physical Therapy Treatment Plan Bed Mobility Training,Transfer Training,Gait Training, Therapeutic Exercise,Balance Retraining,Post Op Education, Discharge Planning,Hot or Cold Pack,Neuromuscular Re-ed, Coordination Retraining,Manual Therapy Precautions Posterior Hip Precautions No Hip Flexion > 90 degrees,No Hip Internal Rotation,No Hip Adduction Weight Bearing Status Weight Bearing Status Weight Bear as Tolerated Allowed Weight Bearing Amount (enter % RLE WBAT or #) (%) Recommendations To Nursing Amount of Assist Needed Mechanical Lift Discharge Recommendations PT Discharge Recommendations SNF Rehab Transportation Needs at Discharge Wheelchair/Cabulance
--- NOTE | 2021-09-12 11:31 | P.PN_ITS ---
Subjective Subjective Date Patient Seen: 09/12/21 Interval history: Patient is a 80 y/o female s/p right unipolar hip replacement. Patient denies any pain or shortness of breath. Procedure was uneventful. Exam Vital Signs (past 8 hours): - 09/12/21 04:05 09/12/21 07:20 09/12/21 08:17 Temperature 97.2 F L 96.9 F L Pulse Rate 73 77 69 Respiratory Rate 20 15 14 Blood Pressure 139/82 129/66 Pulse Oximetry 97 98 94 09/12/21 09:30 Temperature Pulse Rate 101 H Respiratory Rate Blood Pressure 129/66 Pulse Oximetry Oxygen Delivery Method Room Air Oxygen Flow Rate 0 Narrative Exam Narrative: Pleasant female lying in bed in no distress Resp Other: Lungs clear to auscultation Cardio Other: Cardiac exam irregularly irregular normal S1-S2 GI Other: Abdomen soft and nontender Objective Labs Result Diagrams: 09/12/21 08:25 09/10/21 05:30 Labs: Laboratory Results - last 24 hr 09/11/21 09/12/21 14:44 08:25 Hgb 10.1 L Hct 30.8 L SARS-CoV-2 (PCR) Negative [facility] Medical History Atrial fibrillation Chronic obstructive pulmonary disease Social History marital status: household members: spouse and significant other lives independently: Yes Smoking Status: Never smoker quit status: quit date established (1999) alcohol intake: current Assessment & Plan Assessment & Plan narrative: 1. Right femoral neck fracture -suspect secondary to underlying osteoporosis -status post right unipolar hip replacement -weight-bearing as tolerated per surgery -resume Eliquis for DVT prophylaxis and AFib -start PT OT, plan for discharge home 2. Atrial fibrillation -rate control -resume Eliquis 3. Urinary tract infection -patient received 5 days of IV ceftriaxone -will discontinue 4. Hypertension -continue usual home medication 5. Chronic kidney disease -will avoid nephrotoxic agent Time Spent With Patient Critical Care time: I spent a total of [] minutes of critical care time on this patient's care today; this time is exclusive of procedural time.
--- NOTE | 2021-09-12 12:58 | DIET.PN1 ---
Dietary Progress Note Assessment: 80y F s/p day 1 unipolar hip replacement after sustaining GLF referred to nutrition for immobility. Ht: 134.62 cm Wt: 42.5 kg BMI: 23.4 Last BM: () MNA: 14 [place] Score: 16 Diet: 09/11/21 Dinner General (Regular) Diet Diet Modifications: Nutrition Percent Meal Consumed 75% 09/12/21 09:49 Percent Meal Consumed 100% 09/10/21 20:00 Labs: RBC 2.92 X10^6/uL (4.0-5.2) L 09/10/21 05:30 Hgb 10.1 g/dL (12.0-16.0) L 09/12/21 08:25 Hct 30.8 % (36-46) L 09/12/21 08:25 Creatinine 1.33 mg/dL (0.52-1.04) H 09/10/21 05:30 Nutrition Diagnosis: increased nutrient needs for healing r/t post-surgical state aeb pt s/p day 1 unipolar hip replacement, pt with reduced mobility for next several weeks. Interventions: 1. Recc ONS Ensure Surgery bid to support wound healing. EER: 50g PRO Monitoring/Evaluations: ONS tolerance, POs Electronically Signed by: Bobbi Goodrich 09/12/21 12:58 Clinical Dietitian [address] [address]
--- NOTE | 2021-09-12 13:25 | PT.IPTN ---
Current Diagnoses Unspecified intracapsular fracture of right femur, initial encounter for closed fracture (09/07/21) Surgery Performed Operation Date: 09/11/21 14:15 Actual Procedures p Hip Hemiarthroplasty(Right) - Angelique Mensah MD Physical Therapy Treatment Note M2 PT-IP Current Condition Start: 09/08/21 08:35 Freq: Status: Active Protocol: Document 09/12/21 10:45 AB (Rec: 09/12/21 12:59 AB [email or web address]) Physical Therapy Current Condition Current Condition Evaluation Date 09/12/21 Treatment Diagnosis R femoral neck fx s/p unipolar hip arthroplasty; difficulty in walking Onset Date 09/07/21 M3 PT-IP Subjective Start: 09/08/21 08:35 Freq: Status: Active Protocol: Document 09/12/21 13:25 AB (Rec: 09/12/21 15:29 AB [email or web address]) Subjective Physical Therapy Visit Type Type Treatment Note Visit Start Time 13:25 Visit Stop Time 13:40 Total Visit Minutes 15 Number of MOTION PICTURE CAMERAMAN Visits 0 Physical Therapy Visit Comments Patient Comments agreed to do PT Therapy Pain Assessment Pain When Pain Assessed During Mobility Location Right Hip Scale Used pain scale not stated Pain Management Techniques Distraction,Modification of Treatment,Re-positioning, Timing of Activity with Medications M4 PT-IP Mobility and Gait Start: 09/08/21 08:35 Freq: Status: Active Protocol: Document 09/12/21 13:25 AB (Rec: 09/12/21 15:29 AB [email or web address]) PT-Bed Mobility Assessment Sit to Supine Sit to Supine Maximum Assistance,Total Assistance,2 Person Assistance Scooting Scooting to Edge of Bed Dependent PT-Transfer Assessment Sit to and From Stand Sit to and from Stand Maximum Assistance,2 Person Assistance,Use of Upper Extremities Equipment Transfer Assistive Device Gait Belt,Front Wheeled Walker Orthotic/Prosthetic Devices or Brace: No Transfers Transfer Destination Bed Transfer Technique Stand Pivot Transfer Ability Level of Assist Maximum Assistance,2 Person Assistance,Use of Upper Extremities Comments Mobility Comments pt sitting on chair and agreed to do PT. completed sit to stand x 2 attempts max A x 2 and max cues. pt with increas guarding and difficulty following directions. completed pivot transfer using FWW to bed max A x 2 and max cues. total A x 2 for scooting back on the bed. pt tends to get anxious affecting sitting balance and safety with increase LOB posteriorly. completed sit to supine total A x 2 and max cues. positioned pt in bed total Ax 2 and max cues. call light and table placed within reach. M5 PT-IP Objective Assessments Start: 09/08/21 08:35 Freq: Status: Active Protocol: Document 09/12/21 10:45 AB (Rec: 09/12/21 12:59 AB [id number]) Orientation Orientation/Cognition Level of Alertness Confusional State Orientation Name Language Function Ability Kiswahili as Second Language Safety Awareness Decreased Safety Awareness Memory Description Short Term Impaired Gross Range of Motion Lower Extremity ROM Assessment Within Functional Limits Strength Lower Extremity Strength Assessment Bilaterally Impaired Comments Strength Comments LLE: 4-/5 RLE: 3+/5 Sensation Assessment Sensation Gross Sensation WNL Muscle Tone Muscle Tone WNL Yes M6 PT-IP Treatment Start: 09/08/21 08:35 Freq: Status: Active Protocol: Document 09/12/21 13:25 AB (Rec: 09/12/21 15:29 AB [email or web address]) Physical Therapy Treatment Education Education Provided Safety M7 PT-IP Assessment and Plan Start: 09/08/21 08:35 Freq: Status: Active Protocol: Document 09/12/21 13:25 AB (Rec: 09/12/21 15:29 AB [email or web address]) PT Summary Assessment and Plan Potential Rehabilitation Potential Fair Summary Impairments Pain,ROM,Strength,Balance, Coordination,Sensation,Tone, Cognition,Bed Mobility, Transfers,Gait,Activity Tolerance Progress Towards Goals Slow Progress due to Medical Issues,Slow Progress due to Activity Tolerance,Slow Progress - Other Assessment Summary pt requiring max A x 2 to total A x 2 with mobility using FWW. pt will need SNF rehab to improve strength and functional mobility. Goals Bed Mobility Goal Minimal Assistance Transfer Goal Minimal Assistance,Front Wheeled Walker Gait Goal Minimal Assistance,Front Wheel Walker Gait Distance 50 Other Goals improve bed mobility, transfers SBA using FWW improve ambulation using FWW SBA 100 ft Days to Meet Goals 10 Frequency of Treatment Frequency Of Treatment Twice a Day Treatment Plan Physical Therapy Treatment Plan Bed Mobility Training,Transfer Training,Gait Training, Therapeutic Exercise,Balance Retraining,Post Op Education, Discharge Planning,Hot or Cold Pack,Neuromuscular Re-ed, Coordination Retraining,Manual Therapy Precautions Posterior Hip Precautions No Hip Flexion > 90 degrees,No Hip Internal Rotation,No Hip Adduction Weight Bearing Status Weight Bearing Status Weight Bear as Tolerated Allowed Weight Bearing Amount (enter % RLE WBAT or #) (%) Recommendations To Nursing Amount of Assist Needed Mechanical Lift Discharge Recommendations PT Discharge Recommendations SNF Rehab Transportation Needs at Discharge Wheelchair/Cabulance
--- NOTE | 2021-09-12 14:35 | PT.IPTN ---
Current Diagnoses Unspecified intracapsular fracture of right femur, initial encounter for closed fracture (09/07/21) Surgery Performed Operation Date: 09/11/21 14:15 Actual Procedures p Hip Hemiarthroplasty(Right) - Angelique Mensah MD Physical Therapy Treatment Note M2 PT-IP Current Condition Start: 09/08/21 08:35 Freq: Status: Active Protocol: Document 09/12/21 10:45 AB (Rec: 09/12/21 12:59 AB [email or web address]) Physical Therapy Current Condition Current Condition Evaluation Date 09/12/21 Treatment Diagnosis R femoral neck fx s/p unipolar hip arthroplasty; difficulty in walking Onset Date 09/07/21 M3 PT-IP Subjective Start: 09/08/21 08:35 Freq: Status: Active Protocol: Document 09/12/21 14:35 AB (Rec: 09/12/21 15:29 AB [email or web address]) Subjective Physical Therapy Visit Type Type Treatment Note Visit Start Time 14:35 Visit Stop Time 15:10 Total Visit Minutes 35 Number of CYTOGENETICS LABORATORY MANAGER Visits 0 Physical Therapy Visit Comments Patient Comments agreed to do PT Therapy Pain Assessment Pain When Pain Assessed During Mobility Location Right Hip Scale Used pain scale not stated Pain Management Techniques Distraction,Modification of Treatment,Re-positioning, Timing of Activity with Medications M4 PT-IP Mobility and Gait Start: 09/08/21 08:35 Freq: Status: Active Protocol: Document 09/12/21 14:35 AB (Rec: 09/12/21 15:29 AB [email or web address]) PT-Bed Mobility Assessment Sit to Supine Sit to Supine Maximum Assistance,Total Assistance,2 Person Assistance Scooting Scooting to Edge of Bed Dependent PT-Transfer Assessment Sit to and From Stand Sit to and from Stand Maximum Assistance,2 Person Assistance,Use of Upper Extremities Equipment Transfer Assistive Device Gait Belt,Front Wheeled Walker Orthotic/Prosthetic Devices or Brace: No Transfers Transfer Destination Bed Transfer Technique Stand Pivot Transfer Ability Level of Assist Maximum Assistance,2 Person Assistance,Use of Upper Extremities Comments Mobility Comments pt sitting on chair and agreed to do PT. completed sit to stand x 2 attempts max A x 2 and max cues. pt with increas guarding and difficulty following directions. completed pivot transfer using FWW to bed max A x 2 and max cues. total A x 2 for scooting back on the bed. pt tends to get anxious affecting sitting balance and safety with increase LOB posteriorly. completed sit to supine total A x 2 and max cues. positioned pt in bed total Ax 2 and max cues. call light and table placed within reach. M5 PT-IP Objective Assessments Start: 09/08/21 08:35 Freq: Status: Active Protocol: Document 09/12/21 10:45 AB (Rec: 09/12/21 12:59 AB [email or web address]) Orientation Orientation/Cognition Level of Alertness Confusional State Orientation Name Language Function Ability Irish as Second Language Safety Awareness Decreased Safety Awareness Memory Description Short Term Impaired Gross Range of Motion Lower Extremity ROM Assessment Within Functional Limits Strength Lower Extremity Strength Assessment Bilaterally Impaired Comments Strength Comments LLE: 4-/5 RLE: 3+/5 Sensation Assessment Sensation Gross Sensation WNL Muscle Tone Muscle Tone WNL Yes M6 PT-IP Treatment Start: 09/08/21 08:35 Freq: Status: Active Protocol: Document 09/12/21 14:35 AB (Rec: 09/12/21 15:29 AB [email or web address]) Physical Therapy Treatment Education Education Provided Safety M7 PT-IP Assessment and Plan Start: 09/08/21 08:35 Freq: Status: Active Protocol: Document 09/12/21 14:35 AB (Rec: 09/12/21 15:29 AB [email or web address]) PT Summary Assessment and Plan Potential Rehabilitation Potential Fair Summary Impairments Pain,ROM,Strength,Balance, Coordination,Sensation,Tone, Cognition,Bed Mobility, Transfers,Gait,Activity Tolerance Progress Towards Goals Slow Progress due to Medical Issues,Slow Progress due to Activity Tolerance,Slow Progress - Other Assessment Summary pt requiring max A x 2 to total A x 2 with mobility using FWW. pt will need SNF rehab to improve strength and functional mobility. Goals Bed Mobility Goal Minimal Assistance Transfer Goal Minimal Assistance,Front Wheeled Walker Gait Goal Minimal Assistance,Front Wheel Walker Gait Distance 50 Other Goals improve bed mobility, transfers SBA using FWW improve ambulation using FWW SBA 100 ft Days to Meet Goals 10 Frequency of Treatment Frequency Of Treatment Twice a Day Treatment Plan Physical Therapy Treatment Plan Bed Mobility Training,Transfer Training,Gait Training, Therapeutic Exercise,Balance Retraining,Post Op Education, Discharge Planning,Hot or Cold Pack,Neuromuscular Re-ed, Coordination Retraining,Manual Therapy Precautions Posterior Hip Precautions No Hip Flexion > 90 degrees,No Hip Internal Rotation,No Hip Adduction Weight Bearing Status Weight Bearing Status Weight Bear as Tolerated Allowed Weight Bearing Amount (enter % RLE WBAT or #) (%) Recommendations To Nursing Amount of Assist Needed Mechanical Lift Discharge Recommendations PT Discharge Recommendations SNF Rehab Transportation Needs at Discharge Wheelchair/Cabulance
--- NOTE | 2021-09-12 15:54 | OT.IPNOTE ---
Pt eating food while lying in bed, able to assist to get pt higher up in the bed with nursing. Able to get prior history from pt's and to see pt tomorrow for OT beaual. No charge.
[2021-09-12] MEDS: BUDESONIDE 0.5 MG/2 ML NEB INH (18:17)
[2021-09-12] MEDS: LACTATED RINGERS 500 ML 125 ML IV (18:50)
--- NOTE | 2021-09-12 19:22 | PC.NURSE ---
Report from Cherie JUNIOR that patient only had 100 cc urine output. Notified Dr Garcia and LR 500 ml bolus ordered to give over 4 hours. Ausculated lungs, sounded clear without crackles. Visually inspected cope to make sure there were no kinks in tubing and tubing is patent, catheter secured to left leg.
[2021-09-12] MEDS: APIXABAN 5 MG TABLET 2.5 MG PO (20:52)
[2021-09-12] MEDS: ATORVASTATIN 20 MG TABLET 10 MG PO (20:53)
--- NOTE | 2021-09-12 23:52 | PC.NURSE ---
Patient is oriented but communication difficult due to language barrier. Does seem to be able to understand and will respond with yes/no and able to offer some conversation. Has audible expiratory wheeze and has crackles in left LL with RA sat of 95%. HR irregular; has afib. Denied nausea. BT present and states she is passing flatus. Indwelling catheter is patent; urine is dark yellow and had poor UOP on previous shift and had IVF bolus running at shift change. Is able to assist in turning but does not turn herself unless staff assists. Aquacel dressing to right hip is CDI. Is able to scoot leg up on bed but not able to do straight leg lift on right. Wearing bilateral calf SCD's. Denied pain and is currently asleep. Fall risk score is high and bed alarm is activated.
[2021-09-13] VITALS (16 sets, daily range): BP systolic 63–123; BP diastolic 40–80; PULSE 57–91; RESP 15–17; TEMP 36.1–36.7; O2SAT 91–98
[2021-09-13] MEDS: BUDESONIDE 0.5 MG/2 ML NEB INH ×2 (07:06→20:14)
[2021-09-13] MEDS: ALBUTEROL/IPRATROPIUM 3 ML AMPUL INH ×3 (07:06→20:14)
[2021-09-13] MEDS: SODIUM CHLORIDE 0.9% 500 ML 1000 ML IV (08:25)
--- NOTE | 2021-09-13 08:27 | DI.RAD.S_ITS ---
PROCEDURE: XR CHEST 1V INDICATIONS: wheezy TECHNIQUE: One view of the chest was acquired. COMPARISON: [facility] - [place], CR, CHEST 2VW, 05/19/2009, 8:47. FINDINGS: Surgical changes and devices: None. Lungs and pleura: Calcified granulomas in the right mid lung field are unchanged. No pneumothorax. Small right pleural effusion. Blunting of the left costophrenic angle compared to prior CXR. Bibasilar atelectasis suspected. Mediastinum: Mediastinal contours appear unchanged. Aortic calcifications. Heart size is at the upper limits of normal. Bones and chest wall: No suspicious bony lesions. Calcific densities projecting over the chest. This could be due to additional calcified granuloma, breast calcifications, and/or chondroid junction calcifications. IMPRESSION: Small right pleural effusion. Possible trace left pleural effusion. Suspect bibasilar atelectasis. Dictated by: Mick Singh M.D. on 09/13/2021 at 9:12 Approved by: Mick Singh M.D. on 09/13/2021 at 9:15
--- NOTE | 2021-09-13 08:50 | DI.RAD.S_ITS ---
PROCEDURE: XR ABDOMEN 1V INDICATIONS: abdomen pain TECHNIQUE: One view of the abdomen acquired. COMPARISON: [facility] [place], [place], XR CHEST 1V, 09/13/2021, 8:42. FINDINGS: Surgical changes and devices: Right hip arthroplasty. Bowel: Loops of small bowel in the left lower abdomen are at the upper limits of normal in caliber. There is scattered colonic gas. Soft tissues: No suspicious abdominal calcifications. Visualized solid organ contours appear normal in size. Bones: No suspicious bony lesions. Minimal dextroscoliosis. Multilevel degenerative change. IMPRESSION: Loops of small bowel in the left lower abdomen are at the upper limits of normal in caliber. This is nonspecific but could be seen in early SBO or ileus. If clinically indicated consider CT abdomen and pelvis with IV contrast for further evaluation. Dictated by: Mick Singh M.D. on 09/13/2021 at 9:07 Approved by: Mick Singh M.D. on 09/13/2021 at 9:12
[2021-09-13 08:54] LABS: Add Manual Diff / Slide Review NO; Basophils Absolute Auto 0 /uL (0-100); Basophils Percent Auto 0.1 % (0-2); Eosinophils Absolute Auto 0 /uL (0-450); Hematocrit 30.6 % (36-46); Lymphocytes Absolute Auto 500 /uL (1100-4500); Lymphocytes Percent Auto 4.3 % (25-40); Mean Corpuscular HGB Conc 32.8 % (30-36); Mean Corpuscular Volume 100.5 fL (80-100); Monocytes Absolute Auto 800 /uL (0-900); Neutrophils Absolute Auto 11400 /uL (1500-7000); Neutrophils Percent Auto 89.6 % (50-75); Platelet Count 227 X10^3/uL (150-400); Red Blood Cell Count 3.04 X10^6/uL (4.0-5.2); Red Cell Distribution Width 16.1 % (11.6-14.8); White Blood Cell Count 12.7 X10^3/uL (4.5-11.0)
[2021-09-13 09:04] LABS: Alanine Aminotransferase 20 IU/L (<35); Albumin 2.2 g/dL (3.5-5.0); Albumin Globulin Ratio 0.8 (1.0-2.8); Alkaline Phosphatase 101 U/L (38-126); Aspartate Aminotransferase 29 IU/L (14-36); BUN Creatinine Ratio 28.3 (6-22); Bilirubin Total 0.5 mg/dL (0.2-1.3); Blood Urea Nitrogen 52 mg/dL (7-17); Calcium 7.8 mg/dL (8.4-10.2); Carbon Dioxide 17 mmol/L (22-32); Chloride 115 mmol/L (98-107); Creatine Kinase 267 U/L (30-135); Estimated Glomerular Filt Rate 26.3 mL/min (>60); Globulin 2.6 g/dL (1.7-4.1); Glucose 135 mg/dL (80-110); HEMOLYSIS < 15 (0-50); Potassium 4.4 mmol/L (3.4-5.1); Sodium 138 mmol/L (137-145); Total Protein 4.8 g/dL (6.3-8.2)
[2021-09-13 09:16] LABS: NT-proBNP (BNP-Adult 18+) 16200 pg/mL (<450); Troponin I 0.037 ng/mL (0.01-0.034)
[2021-09-13 09:19] LABS: CKMB % Relative Index 2.9 % (1.5-5.0); Creatine Kinase MB 7.77 ng/mL (<2.37)
[2021-09-13] MEDS: carvediloL 3.125 MG TABLET 6.25 MG PO (10:15)
[2021-09-13] MEDS: AMIODARONE 200 MG TABLET PO (10:15)
--- NOTE | 2021-09-13 10:15 | PT.IPTN ---
Current Diagnoses Unspecified intracapsular fracture of right femur, initial encounter for closed fracture (09/07/21) Surgery Performed Operation Date: 09/11/21 14:15 Actual Procedures p Hip Hemiarthroplasty(Right) - Angelique Mensah MD Physical Therapy Treatment Note M2 PT-IP Current Condition Start: 09/08/21 08:35 Freq: Status: Active Protocol: Document 09/12/21 10:45 AB (Rec: 09/12/21 12:59 AB [email or web address]) Physical Therapy Current Condition Current Condition Evaluation Date 09/12/21 Treatment Diagnosis R femoral neck fx s/p unipolar hip arthroplasty; difficulty in walking Onset Date 09/07/21 M3 PT-IP Subjective Start: 09/08/21 08:35 Freq: Status: Active Protocol: Document 09/13/21 10:15 AB (Rec: 09/13/21 12:44 AB [email or web address]) Subjective Physical Therapy Visit Type Type Treatment Note Visit Start Time 10:15 Visit Stop Time 12:10 Total Visit Minutes 62 Notes pt seen for split visits: 1015 am to 1042 am and 1135 an ti 1210pm Number of REGIONAL ADMINISTRATIVE ASSISTANT Visits 0 Physical Therapy Visit Comments Patient Comments initially refusing to get out of the bed but agreed after motivation and education Therapy Pain Assessment Pain When Pain Assessed During Mobility Pain Present Pain Present Pain Reported Location Right Hip Scale Used pain scale not stated M4 PT-IP Mobility and Gait Start: 09/08/21 08:35 Freq: Status: Active Protocol: Document 09/13/21 10:15 AB (Rec: 09/13/21 12:44 AB [email or web address]) PT-Bed Mobility Assessment Supine to Sit Supine to Sit Maximum Assistance,1 Person Assistance,2 Person Assistance PT-Transfer Assessment Sit to and From Stand Sit to and from Stand Maximum Assistance,2 Person Assistance,Use of Upper Extremities Equipment Transfer Assistive Device Gait Belt,Front Wheeled Walker Orthotic/Prosthetic Devices or Brace: No Transfers Transfer Destination Bedside Commode Transfer Technique Stand Step Pivot Transfer Ability Level of Assist Maximum Assistance,2 Person Assistance,Use of Upper Extremities Comments Mobility Comments NAC and nurse in room with pt. nurse informed PT that pt was given stool softeners since pt has not had a BM for ~1 week. attempted to get pt out of the bed to use the bedside commode but upon assisting pt for bed mobility for NAC to clean pt and manage brief, pt seems to be still moving her bowels. pt required max A x 2 for rolling L<>R. Left pt with NAC and pt agreed for PT to come back. checked on pt again. pt initially does not want to get out of the bed. educated pt on importance of mobility and pt agreed. pt agreed to use bedside commode. completed supine to sit HOB elevated max A and max cues. mod to max A for sitting balance on EOB. pt has fear of falling and feels nervous and has jerky movements on initial movement and when pt does not have anything to hold on to. pt completed sit to stand max A x 2 and max cues and step transfer to bedside commode, max A x 2 and max cues using FWW. (+) R knee buckling requiring max A for stability. another NAC present and assist with brief managment. pt completed sit to stand from bedside commode max A x 2 and max cues and was able to maintain standing using FWW for support max A x 2 and cues while another NAC assisted pt the hygiene care and brief management. pt sat back on bedside commode and rested for a few minutes. set up chair next to pt. completed sit to stand from the bedside commode max A x 2 and max cues and step transfer to chair using FWW max A x2 and max cues. positioned on chair. chair alarm on. call light and table placed within reach. left pt with spouse in room. M5 PT-IP Objective Assessments Start: 09/08/21 08:35 Freq: Status: Active Protocol: Document 09/12/21 10:45 AB (Rec: 09/12/21 12:59 AB [email or web address]) Orientation Orientation/Cognition Level of Alertness Confusional State Orientation Name Language Function Ability [place] as Second Language Safety Awareness Decreased Safety Awareness Memory Description Short Term Impaired Gross Range of Motion Lower Extremity ROM Assessment Within Functional Limits Strength Lower Extremity Strength Assessment Bilaterally Impaired Comments Strength Comments LLE: 4-/5 RLE: 3+/5 Sensation Assessment Sensation Gross Sensation WNL Muscle Tone Muscle Tone WNL Yes M6 PT-IP Treatment Start: 09/08/21 08:35 Freq: Status: Active Protocol: Document 09/13/21 10:15 AB (Rec: 09/13/21 12:44 AB [email or web address]) Physical Therapy Treatment Education Education Provided Safety M7 PT-IP Assessment and Plan Start: 09/08/21 08:35 Freq: Status: Active Protocol: Document 09/13/21 10:15 AB (Rec: 09/13/21 12:44 AB [email or web address]) PT Summary Assessment and Plan Potential Rehabilitation Potential Good Summary Impairments Pain,ROM,Strength,Balance, Coordination,Sensation,Tone, Cognition,Bed Mobility, Transfers,Gait,Activity Tolerance Progress Towards Goals Slow Progress due to Pain,Slow Progress due to Medical Issues,Slow Progress due to Activity Tolerance Assessment Summary pt continues to require max A x 2 for transfers using FWW but was able to tolerate standing better and with better LE control but still requires assist to steady LE and present from giving out. pt will require SNF rehab to improve strength and mobility. Goals Bed Mobility Goal Minimal Assistance Transfer Goal Minimal Assistance,Front Wheeled Walker Gait Goal Minimal Assistance,Front Wheel Walker Gait Distance 50 Other Goals improve bed mobility, transfers SBA using FWW improve ambulation using FWW SBA 100 ft Days to Meet Goals 10 Frequency of Treatment Frequency Of Treatment Twice a Day Treatment Plan Physical Therapy Treatment Plan Bed Mobility Training,Transfer Training,Gait Training, Therapeutic Exercise,Balance Retraining,Post Op Education, Discharge Planning,Hot or Cold Pack,Neuromuscular Re-ed, Coordination Retraining,Manual Therapy Precautions Posterior Hip Precautions No Hip Flexion > 90 degrees,No Hip Internal Rotation,No Hip Adduction Weight Bearing Status Weight Bearing Status Weight Bear as Tolerated Allowed Weight Bearing Amount (enter % RLE WBAT or #) (%) Recommendations To Nursing Amount of Assist Needed Mechanical Lift Discharge Recommendations PT Discharge Recommendations SNF Rehab Transportation Needs at Discharge Wheelchair/Cabulance
[2021-09-13] MEDS: ASPIRIN EC 81 MG TABLET PO (10:16)
[2021-09-13] MEDS: APIXABAN 5 MG TABLET 2.5 MG PO ×2 (10:17→20:47)
[2021-09-13] MEDS: ACETAMINOPHEN 325 MG TABLET 650 MG PO ×3 (10:18→20:30)
[2021-09-13] MEDS: IBUPROFEN 400 MG TABLET PO ×4 (10:19→20:31)
[2021-09-13] MEDS: SODIUM CHLORIDE 0.9% FLUSH 10 ML IV ×2 (10:19→20:36)
--- NOTE | 2021-09-13 11:51 | PM.PN.1 ---
Subjective Subjective Date Patient Seen: 09/13/21 Interval history: Patient is an 80-year-old female with chronic atrial fibrillation who is status post unipolar hip replacement for right femoral neck fracture. Patient was noted to be hypotensive this morning. She was somewhat unresponsive with poor urine output. Patient's blood pressure was 63 or 40, repeat blood pressure is 84/56. She received IV fluids, had improvement of her blood pressure and improvement of her mentation. Patient is noted to be wheezing. According to her she does have a history of COPD. Exam Vital Signs (past 8 hours): - 09/13/21 06:27 09/13/21 07:13 09/13/21 07:35 Temperature 98.1 F Pulse Rate 81 57 L Respiratory Rate 16 16 Blood Pressure 123/80 86/40 L Pulse Oximetry 95 93 09/13/21 07:40 09/13/21 07:50 09/13/21 08:31 Temperature 96.9 F L Pulse Rate 91 H Respiratory Rate 16 Blood Pressure 63/40 L 86/40 L 84/56 L Pulse Oximetry 91 09/13/21 10:15 09/13/21 10:35 Temperature Pulse Rate Respiratory Rate Blood Pressure 102/56 L 104/51 L Pulse Oximetry Oxygen Delivery Method Room Air Oxygen Flow Rate 0 Narrative Exam Narrative: Ill-appearing elderly female, minimally responsive Resp Other: Lungs decreased breath sounds with end-expiratory wheezing bilaterally Cardio Other: Tachycardic irregularly irregular normal S1-S2 GI Other: Abdomen soft nontender nondistended Extrem Other: Extremity no edema Objective Labs Result Diagrams: 09/13/21 08:46 09/13/21 08:46 Labs: Laboratory Results - last 24 hr 09/13/21 09/13/21 08:46 08:46 WBC 12.7 H RBC 3.04 L Hgb 10.0 L Hct 30.6 L MCV 100.5 H MCH 33.0 MCHC 32.8 RDW 16.1 H Plt Count 227 Neut % (Auto) 89.6 H Lymph % (Auto) 4.3 L [place] % (Auto) 6.0 Eos % (Auto) 0.0 L Baso % (Auto) 0.1 Neut # (Auto) 49775 H Lymph # (Auto) 500 L [place] # (Auto) 800 Eos # (Auto) 0 Baso # (Auto) 0 Sodium 138 Potassium 4.4 Chloride 115 H Carbon Dioxide 17 L BUN 52 H Creatinine 1.84 H Estimated GFR 26.3 L BUN/Creatinine Ratio 28.3 H Glucose 135 H Calcium 7.8 L Total Bilirubin 0.5 AST 29 ALT 20 Alkaline Phosphatase 101 D Total Creatine Kinase 267 H CK-MB (CK-2) 7.77 H CK-MB (CK-2) Rel Index 2.9 Troponin I 0.037 H NT-Pro-B Natriuret Pep 11937 H Total Protein 4.8 L Albumin 2.2 L Globulin 2.6 Albumin/Globulin Ratio 0.8 L PFSH Medical History Atrial fibrillation Chronic obstructive pulmonary disease Social History marital status: household members: spouse lives independently: Yes Smoking Status: Never smoker quit status: quit date established (1999) alcohol intake: current Assessment & Plan Assessment & Plan narrative: Impression 1. Hypotension -suspect volume depletion -given elevated creatinine, decreased urine output, confusion suspect volume depletion -with IV hydration blood pressure improved -will continue to follow closely elevated proBNP suggest need to follow closely to rule out the possibility of heart failure chest x-ray does not suggest pulmonary edema at this point 2. Acute kidney injury -suspect prerenal azotemia related to volume depletion -will repeat in the morning -discontinue Lasix, discontinue lisinopril until renal function normal -avoid nephrotoxic agent 3. Chronic persistent atrial fibrillation -continue apixaban -continue amiodarone -continue Coreg 4. COPD -continue fluticasone -continue Spiriva 5. Hyperlipidemia -continue statin Time Spent With Patient Critical Care time: I spent a total of [] minutes of critical care time on this patient's care today; this time is exclusive of procedural time.
--- NOTE | 2021-09-13 11:55 | P.PN_ITS ---
Subjective Subjective Date Patient Seen: 09/13/21 Time Patient Seen: 11:56 Interval history: Patient seen with INFORMATICS SCIENTIST and therapy at bedside. is not present this morning. Patient has been reporting mild pain with rest more moderate to severe with activity or movement. Denies any shortness of breath or chest pain. Denies fever chills. Exam Vital Signs (past 8 hours): - 09/13/21 06:27 09/13/21 07:13 09/13/21 07:35 Temperature 98.1 F Pulse Rate 81 57 L Respiratory Rate 16 16 Blood Pressure 123/80 86/40 L Pulse Oximetry 95 93 09/13/21 07:40 09/13/21 07:50 09/13/21 08:31 Temperature 96.9 F L Pulse Rate 91 H Respiratory Rate 16 Blood Pressure 63/40 L 86/40 L 84/56 L Pulse Oximetry 91 09/13/21 10:15 09/13/21 10:35 Temperature Pulse Rate Respiratory Rate Blood Pressure 102/56 L 104/51 L Pulse Oximetry Oxygen Delivery Method Room Air Oxygen Flow Rate 0 Narrative Exam Narrative: 80-year-old female resting comfortably in bed in no apparent distress. Right hip dressing is Clean, dry, intact.. Motor functions intact bilateral lower extremities. Sensation grossly intact to light touch bilateral lower extremities. Objective Labs Result Diagrams: 09/13/21 08:46 09/13/21 08:46 Labs: Laboratory Results - last 24 hr 09/13/21 09/13/21 08:46 08:46 WBC 12.7 H RBC 3.04 L Hgb 10.0 L Hct 30.6 L MCV 100.5 H MCH 33.0 MCHC 32.8 RDW 16.1 H Plt Count 227 Neut % (Auto) 89.6 H Lymph % (Auto) 4.3 L [place] % (Auto) 6.0 Eos % (Auto) 0.0 L Baso % (Auto) 0.1 Neut # (Auto) 46515 H Lymph # (Auto) 500 L [place] # (Auto) 800 Eos # (Auto) 0 Baso # (Auto) 0 Sodium 138 Potassium 4.4 Chloride 115 H Carbon Dioxide 17 L BUN 52 H Creatinine 1.84 H Estimated GFR 26.3 L BUN/Creatinine Ratio 28.3 H Glucose 135 H Calcium 7.8 L Total Bilirubin 0.5 AST 29 ALT 20 Alkaline Phosphatase 101 D Total Creatine Kinase 267 H CK-MB (CK-2) 7.77 H CK-MB (CK-2) Rel Index 2.9 Troponin I 0.037 H NT-Pro-B Natriuret Pep 44905 H Total Protein 4.8 L Albumin 2.2 L Globulin 2.6 Albumin/Globulin Ratio 0.8 L PFSH Medical History Atrial fibrillation Chronic obstructive pulmonary disease Social History marital status: household members: spouse lives independently: Yes Smoking Status: Never smoker quit status: quit date established (1999) alcohol intake: current Assessment & Plan Assessment & Plan narrative: Continue standard total hip replacement protocol with weight-bearing as tolerated posterior hip precautions Multimodal pain management Eliquis and SCDs for DVT prophylaxis Disposition correction facility today or tomorrow Follow-up with [facility] in 10-14 days Time Spent With Patient Critical Care time: I spent a total of [] minutes of critical care time on this patient's care today; this time is exclusive of procedural time.
--- NOTE | 2021-09-13 13:43 | CM.DPNOTE ---
Faxed HH referral packet to [facility] per Elsie and received fax confirm. Maia Reaves CM Asst.
--- NOTE | 2021-09-13 14:08 | OT.IP.EVAL ---
Current Diagnoses Unspecified intracapsular fracture of right femur, initial encounter for closed fracture (09/07/21) Surgery Performed Operation Date: 09/11/21 14:15 Actual Procedures p Hip Hemiarthroplasty(Right) - Angelique Mensah MD Past Medical History (Last Reviewed 09/12/21 @ 08:17 by Gaurav Contreras PA-C) Atrial fibrillation Chronic obstructive pulmonary disease Occupational Therapy Inpatient Evaluation/Re-Eval M1 PT/OT-IP Prior Functional Status Start: 09/08/21 08:35 Freq: Status: Active Protocol: Document 09/13/21 14:00 [facility] (Rec: 09/13/21 14:38 [facility] [id number]) Medical Review Prior Functional Status Medical History Reviewed Yes Communication has difficulty following directions; pt first preferred language is Cameroonian but able to understand some Azerbaijani but spouse stated that pt has memory issues even prior to hospitalization Mobility and Gait spouse stated that pt is modified independent with all mobilities and ambulation without AD but tend to furniture cruise Activities of Daily Living and IADL's Pt's states prior pt able to do all her ADl's and IADl needs. Social History Household Members spouse Living Arrangements House Number of Floors (Floors) One Floor Number of Stairs To Enter/Railing? 2 steps without rails to enter Home Environment Standard Height Toilet,Tub/ Shower Home Equipment Hand Held Shower,Grab Bars In Shower Additional Social History Comment pt has a walk in tub shower pt has a standard walker M2 OT-IP Current Condition Start: 09/13/21 14:11 Freq: Status: Active Protocol: Document 09/13/21 14:00 [facility] (Rec: 09/13/21 14:38 [facility] [id number]) Occupational Therapy Current Condition Current Condition Evaluation Date 09/13/21 Treatment Diagnosis S/P Right femoral neck fracture, decreased mobility. Diagnosis Onset Date 09/01/21 Post Operative Precautions Posterior Hip Precautions No Hip Flexion > 90 degrees,No Hip Internal Rotation,No Hip Adduction M3 OT- IP Subjective and Pain Start: 09/13/21 14:11 Freq: Status: Active Protocol: Document 09/13/21 14:00 [facility] (Rec: 09/13/21 14:38 [facility] [id number]) OT- Subjective Occupational Therapy Visit Type Type Initial Evaluation Visit Start Time 13:40 Visit Stop Time 14:08 Total Visit Minutes 28 Occupational Therapy Visit Comments Patient Comments Pt wanting to get back to bed. Able to initiate caregiver training with pt's as insisting on taking the pt home. Patient/Caregiver Goals TO go home. OT Pain Assessment Pain When Pain Assessed At Rest Pain Present Pain Present Denied Pain M4 OT- IP ADL's Start: 09/13/21 14:11 Freq: Status: Active Protocol: Document 09/13/21 14:00 [facility] (Rec: 09/13/21 14:38 [facility] [id number]) OT [id number] Comments OT Self-Feeding Comments Not at meal time. OT ADL-Grooming Comments OT Grooming Comments Pt able to wash her face after set-up of wash cloth. OT ADL-Oral Care Comments Oral Care Comments Not performed. Pt's states pt tends to gum her food and only wears her dentures if eating steak or other tough foods. OT ADL-Dressing General Eval Lower Body Dressing Ability Total Assistance OT ADL-Toileting General Evaluation Toileting Ability Total Assistance Comments OT Toileting Comments [place] in place, dependent for hygiene and brief management in the bed. OT ADL-Bathing Comments OT Bathing Comments Sponge bath more appropriate at this time. M5 OT- IP IADL's Start: 09/13/21 14:11 Freq: Status: Active Protocol: Document 09/13/21 14:00 [facility] (Rec: 09/13/21 14:38 [facility] [id number]) OT-Instrumental Activities of Daily Living Home Safety Awareness Home Safety Comments Pt's states prior does the bills and medications for the pt. M6 OT- IP Functional Cognition Start: 09/13/21 14:11 Freq: Status: Active Protocol: Document 09/13/21 14:00 [facility] (Rec: 09/13/21 14:38 [facility] [id number]) Cognitive Factors Limiting Selfcare Function Cognitive Ability Level of Alertness Alert Attention Span Ability Capable of Focused Attention, Capable of Sustained Attention Ability to Follow Commands Able to Follow One Step Commands with Increased Time, Able to Follow One Step Commands with Repetition Cognitive Comments Cognitive Assessment Comments Cameroonian is her primary language and able to understand some Azerbaijani. Pt needing concrete vc, hand over hand assist to guide her hand to and from the armrest of the recliner and handle of FWW . OT- Vision and Hearing OT- Vision Assessment Visual Acuity Glasses All The Time M7 OT- IP Mobility and Balance Start: 09/13/21 14:11 Freq: Status: Active Protocol: Document 09/13/21 14:00 [facility] (Rec: 09/13/21 14:38 [facility] [id number]) OT- Bed Mobility Assessment Sit to Supine Sit to Supine Assist Total Assistance,2 Person Assistance Scooting Scooting to Edge of Bed Maximum Assistance,2 Person Assistance OT-Transfer Assessment Sit to and From Stand Sit to and from Stand Maximum Assistance,Total Assistance,2 Person Assistance Transfers Transfer Ability Maximum Assistance,2 Person Assistance Technique Transfer Destination Bed,Chair Transfer Technique Stand Step Pivot Devices Transfer Assistive Devices Gait Belt,Front Wheeled Walker Comments Mobility Comments MAXA x 2-3 to stand to FWW and 3 person assist to help transfer to the bed. Pt needing assist to stand, prevent from her right knee to buckle, and assist to move the FWW. Use of mechanical lift for transfers is much safer at this time. OT- Balance Assessment Sitting Balance and Reactions Static Sitting Balance Ability Fair Dynamic Sitting Balance Ability Poor Standing Balance and Reactions Static Standing Balance Ability Poor Dynamic Standing Balance Ability Poor M8 OT- IP Objective Assessments Start: 09/13/21 14:11 Freq: Status: Active Protocol: Document 09/13/21 14:00 [facility] (Rec: 09/13/21 14:38 [facility] [id number]) OT Strength Comments Strength Comments Not able to formally assess , pt is at least 3-/5 at able to assist for mobility needs. M9 OT- IP Assessment and Plan Start: 09/13/21 14:11 Freq: Status: Active Protocol: Document 09/13/21 14:00 [facility] (Rec: 09/13/21 14:38 [facility] [id number]) OT Summary Assessment and Plan Potential Rehabilitation Potential Good Analytic Complexity at Evaluation Low Summary OT Impairments Pain,Balance,Functional Cognition,Functional Mobility, Self-Feeding,Grooming,Dressing ,Toileting,Bathing,Toilet Transfers,Shower Transfers, Activity Tolerance Progress Towards Goals Slow Progress due to Pain,Slow Progress due to Activity Tolerance,Slow Progress due to Cognition Assessment Summary Pt MOD complexity and prior was MOD I with needs and without use of a device and now needing extensive 2-3 person assist and that her right knee buckle while standing. Able to initiate caregiver training with her in how to alycia/doff the gait belt and how to assist pt to stand and transfer. Pt's now agrees that at this time pt is too great of care for him to be able to handle and now wanting to look into skilled rehab. Able to notify case management of pt's now agreeing for pt to go to skilled rehab. Goals Grooming Goal Independent Dressing Goal Minimal Assistance Toileting Goal Standby Assistance Bathing Goal Standby Assistance Toilet Transfer Goal Standby Assistance Shower Transfer Goal Standby Assistance Patient/Caregiver Education Goal Demonstrate Post-Op Precautions Days to Meet Goals 40 Frequency of Treatment Frequency Of Treatment Once a Day Treatment Plan OT Treatment Plan ADL Training,Functional Cognition Training,Functional Mobility,Patient/Family Education,Discharge Planning Other Treatment Recommendations and Next Transfer [place] [facility] [place] KENIA Jon x2. Treatment Focus Discharge Recommendations OT Discharge Recommendations SNF Rehab Transportation Needs at Discharge Wheelchair/Cabulance
--- NOTE | 2021-09-13 14:46 | PT.IPTN ---
Current Diagnoses Unspecified intracapsular fracture of right femur, initial encounter for closed fracture (09/07/21) Surgery Performed Operation Date: 09/11/21 14:15 Actual Procedures p Hip Hemiarthroplasty(Right) - Angelique Mensah MD Physical Therapy Treatment Note M2 PT-IP Current Condition Start: 09/08/21 08:35 Freq: Status: Active Protocol: Document 09/12/21 10:45 AB (Rec: 09/12/21 12:59 AB [id number]) Physical Therapy Current Condition Current Condition Evaluation Date 09/12/21 Treatment Diagnosis R femoral neck fx s/p unipolar hip arthroplasty; difficulty in walking Onset Date 09/07/21 M3 PT-IP Subjective Start: 09/08/21 08:35 Freq: Status: Active Protocol: Document 09/13/21 14:46 AB (Rec: 09/13/21 15:57 AB [id number]) Subjective Physical Therapy Visit Type Type Treatment Note Visit Start Time 14:46 Visit Stop Time 15:30 Total Visit Minutes 44 Number of MATTE CUTTER Visits 0 Physical Therapy Visit Comments Patient Comments pt is agreeable to do PT Therapy Pain Assessment Pain When Pain Assessed During Mobility Location Right Hip Scale Used pain scale not stated M4 PT-IP Mobility and Gait Start: 09/08/21 08:35 Freq: Status: Active Protocol: Document 09/13/21 14:46 AB (Rec: 09/13/21 15:57 AB [id number]) PT-Bed Mobility Assessment Supine to Sit Supine to Sit Maximum Assistance,1 Person Assistance Sit to Supine Sit to Supine Maximum Assistance,2 Person Assistance Scooting Scooting to Edge of Bed Maximum Assistance PT-Transfer Assessment Sit to and From Stand Sit to and from Stand Maximum Assistance,2 Person Assistance Equipment Transfer Assistive Device Gait Belt,Front Wheeled Walker Orthotic/Prosthetic Devices or Brace: No Transfers Transfer Destination Chair Transfer Technique Stand Step Pivot Transfer Ability Level of Assist Maximum Assistance,2 Person Assistance,Use of Upper Extremities Comments Mobility Comments pt supine in bed. spouse in room. agreed to do PT. completed supine to sit max A and max cues with HOB elevated . pt sat on EOB requiring min to mod A for sitting balance. completed sit to stand max A x 2 and max cues. required max A to stablize R knee. able to take a few steps using FWW max A x2 but has to sit midway and PT pivoted pt to chair. (+) R knee buckling requiring max A for stability. pt agreed to ambulate more and ambulated ~ 3 ft using FWW max Ax 2 and max cues with chair follow. pt requested to go back to bed. completed step transfer using FWW max A x 2 and max cues. required max A x 2 for bed mobility sit to supine. positioned pt in bed. call light and table placed within reach. manager cosmetic informed PT that spouse does not want pt to go to SNF. talked with pt and spouse regarding SNF rehab and what is needed for pt to go home safely if pt does not want to go to SNF. spouse stated that he and his will talk about it further. Gait Assessment Gait Gait Assistance Required: Maximum Assistance,2 Person Assist Distance (Feet) 3 Able to Maintain Weight Bearing Status Yes During Gait Assistive Devices Assistive Device Gait Belt,Front Wheeled Walker Orthotic/Prosthetic Devices or Brace: Yes Gait Deviations General Gait Pattern Decreased Stride Length, Decreased Feet Clearance,Step- to Gait Factors Limiting Gait Function Factors Limiting Gait Function Decreased Activity Tolerance, Decreased Strength,Difficulty Following Directions,Pain,Poor Balance,Poor Safety Awareness ,Respiratory Distress M5 PT-IP Objective Assessments Start: 09/08/21 08:35 Freq: Status: Active Protocol: Document 09/12/21 10:45 AB (Rec: 09/12/21 12:59 AB [id number]) Orientation Orientation/Cognition Level of Alertness Confusional State Orientation Name Language Function Ability Upper Sorbian as Second Language Safety Awareness Decreased Safety Awareness Memory Description Short Term Impaired Gross Range of Motion Lower Extremity ROM Assessment Within Functional Limits Strength Lower Extremity Strength Assessment Bilaterally Impaired Comments Strength Comments LLE: 4-/5 RLE: 3+/5 Sensation Assessment Sensation Gross Sensation WNL Muscle Tone Muscle Tone WNL Yes M6 PT-IP Treatment Start: 09/08/21 08:35 Freq: Status: Active Protocol: Document 09/13/21 14:46 AB (Rec: 09/13/21 15:57 AB [id number]) Physical Therapy Treatment Education Education Provided Precautions,Safety M7 PT-IP Assessment and Plan Start: 09/08/21 08:35 Freq: Status: Active Protocol: Document 09/13/21 14:46 AB (Rec: 09/13/21 15:57 AB [id number]) PT Summary Assessment and Plan Potential Rehabilitation Potential Fair Summary Impairments Pain,ROM,Strength,Balance, Coordination,Sensation,Tone, Cognition,Bed Mobility, Transfers,Gait,Activity Tolerance Progress Towards Goals Slow Progress due to Pain,Slow Progress due to Medical Issues,Slow Progress due to Activity Tolerance Assessment Summary pt continues to require max A x 2 for transfers using FWW but is slowly progressing and able to ambulate ~ 3 ft using FWW max A x 2 and max cues. Pt will still require SNF rehab. talke with pt and spouse regarding SNF rehab and spouse stated that it is the pt's decision. informed pt and spouse what it takes for pt to go home safely and will need 24/ assist of 2 person available at this time. spouse stated that he and the pt will talk about it further. will continue PT to improve strength and mobility. Goals Bed Mobility Goal Minimal Assistance Transfer Goal Minimal Assistance,Front Wheeled Walker Gait Goal Minimal Assistance,Front Wheel Walker Gait Distance 50 Other Goals improve bed mobility, transfers SBA using FWW improve ambulation using FWW SBA 100 ft Days to Meet Goals 10 Frequency of Treatment Frequency Of Treatment Twice a Day Treatment Plan Physical Therapy Treatment Plan Bed Mobility Training,Transfer Training,Gait Training, Therapeutic Exercise,Balance Retraining,Post Op Education, Discharge Planning,Hot or Cold Pack,Neuromuscular Re-ed, Coordination Retraining,Manual Therapy Precautions Posterior Hip Precautions No Hip Flexion > 90 degrees,No Hip Internal Rotation,No Hip Adduction Weight Bearing Status Weight Bearing Status Weight Bear as Tolerated Allowed Weight Bearing Amount (enter % RLE WBAT or #) (%) Recommendations To Nursing Amount of Assist Needed Mechanical Lift Discharge Recommendations PT Discharge Recommendations SNF Rehab Transportation Needs at Discharge Wheelchair/Cabulance
--- NOTE | 2021-09-13 14:52 | CM.DPNOTE ---
Per Elsie, faxed SNF referral packet to [facility] [place]; Emailed to Priya Talavera & [facility]; Called March from . Received fax/email conf. IVIS Ramost.
[2021-09-13] MEDS: ATORVASTATIN 20 MG TABLET 10 MG PO (20:30)
[2021-09-14] VITALS (7 sets, daily range): BP systolic 93–122; BP diastolic 50–85; PULSE 62–94; RESP 16–22; TEMP 35.9–36.5; O2SAT 92–98
[2021-09-14] MEDS: IBUPROFEN 400 MG TABLET PO ×3 (04:22→12:14)
[2021-09-14 05:39] LABS: Add Manual Diff / Slide Review NO; Basophils Absolute Auto 0 /uL (0-100); Basophils Percent Auto 0.2 % (0-2); Eosinophils Absolute Auto 0 /uL (0-450); Eosinophils Percent Auto 0.5 % (2-4); Hematocrit 28.2 % (36-46); Hemoglobin 9.5 g/dL (12.0-16.0); Lymphocytes Absolute Auto 600 /uL (1100-4500); Lymphocytes Percent Auto 8.2 % (25-40); Mean Corpuscular HGB Conc 33.5 % (30-36); Mean Corpuscular Hemoglobin 33.3 PG (26-34); Mean Corpuscular Volume 99.4 fL (80-100); Monocytes Absolute Auto 600 /uL (0-900); Monocytes Percent Auto 7.7 % (3-14); Neutrophils Absolute Auto 6300 /uL (1500-7000); Neutrophils Percent Auto 83.4 % (50-75); Platelet Count 223 X10^3/uL (150-400); Red Blood Cell Count 2.84 X10^6/uL (4.0-5.2); Red Cell Distribution Width 16.1 % (11.6-14.8); White Blood Cell Count 7.6 X10^3/uL (4.5-11.0)
[2021-09-14 05:42] LABS: BUN Creatinine Ratio 26.5 (6-22); Blood Urea Nitrogen 58 mg/dL (7-17); Calcium 7.8 mg/dL (8.4-10.2); Carbon Dioxide 19 mmol/L (22-32); Chloride 115 mmol/L (98-107); Estimated Glomerular Filt Rate 21.5 mL/min (>60); Glucose 110 mg/dL (80-110); HEMOLYSIS < 15 (0-50); Potassium 4.1 mmol/L (3.4-5.1); Sodium 140 mmol/L (137-145)
[2021-09-14 05:54] LABS: Troponin I 0.033 ng/mL (0.01-0.034)
[2021-09-14] MEDS: BUDESONIDE 0.5 MG/2 ML NEB INH (06:42)
[2021-09-14] MEDS: ALBUTEROL/IPRATROPIUM 3 ML AMPUL INH (06:42)
[2021-09-14] MEDS: ACETAMINOPHEN 325 MG TABLET 650 MG PO ×2 (08:49→14:36)
[2021-09-14] MEDS: APIXABAN 5 MG TABLET 2.5 MG PO (08:50)
[2021-09-14] MEDS: SODIUM CHLORIDE 0.9% FLUSH 10 ML IV (08:51)
[2021-09-14] MEDS: AMIODARONE 200 MG TABLET PO (08:51)
--- NOTE | 2021-09-14 10:01 | P.PN_ITS ---
Subjective Subjective Date Patient Seen: 09/14/21 Time Patient Seen: 10:01 Interval history: Patient states her pain is mild. Denies fever or chills. No nausea or vomiting. Patient's is at bedside to help interpret. Exam Vital Signs (past 8 hours): - 09/14/21 05:14 09/14/21 06:59 09/14/21 07:30 Temperature 97.3 F L 97.7 F Pulse Rate 83 73 77 Respiratory Rate 16 16 17 Blood Pressure 122/54 L 115/66 Pulse Oximetry 96 93 96 Oxygen Delivery Method Room Air Oxygen Flow Rate 0 Narrative Exam Narrative: 80-year-old female who was much more alert and oriented today compared to yesterday. She is in no apparent distress. Right hip dressing is Clean, dry, intact.. Motor functions intact bilateral lower extremities. Sensation grossly intact to light touch bilateral lower extremities. Objective Labs Result Diagrams: 09/14/21 05:07 09/14/21 05:07 Labs: Laboratory Results - last 24 hr 09/14/21 09/14/21 05:07 05:07 WBC 7.6 RBC 2.84 L Hgb 9.5 L Hct 28.2 L MCV 99.4 MCH 33.3 MCHC 33.5 RDW 16.1 H Plt Count 223 Neut % (Auto) 83.4 H Lymph % (Auto) 8.[address] [place] % (Auto) 7.7 Eos % (Auto) 0.5 L Baso % (Auto) 0.2 Neut # (Auto) 6300 Lymph # (Auto) [address] [place] # (Auto) 600 Eos # (Auto) 0 Baso # (Auto) 0 Sodium 140 Potassium 4.1 Chloride 115 H Carbon Dioxide 19 L BUN 58 H Creatinine 2.19 H Estimated GFR 21.5 L BUN/Creatinine Ratio 26.5 H Glucose 110 Calcium 7.8 L Troponin I 0.033 PFSH Medical History Atrial fibrillation Chronic obstructive pulmonary disease Social History marital status: household members: spouse lives independently: Yes Smoking Status: Never smoker quit status: quit date established (1999) alcohol intake: current Assessment & Plan Post-op Postoperative Procedures: Procedures Operation Date: 09/11/21 14:15 Actual Procedure Side Surgeon p Hip Hemiarthroplasty Right Angelique Mensah MD Postoperative status narrative: Improving Postoperative plan narrative: 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
--- NOTE | 2021-09-14 10:30 | PT.IPTN ---
Current Diagnoses Unspecified intracapsular fracture of right femur, initial encounter for closed fracture (09/07/21) Surgery Performed Operation Date: 09/11/21 14:15 Actual Procedures p Hip Hemiarthroplasty(Right) - Angelique Mensah MD Physical Therapy Treatment Note M2 PT-IP Current Condition Start: 09/08/21 08:35 Freq: Status: Active Protocol: Document 09/12/21 10:45 AB (Rec: 09/12/21 12:59 AB [id number]) Physical Therapy Current Condition Current Condition Evaluation Date 09/12/21 Treatment Diagnosis R femoral neck fx s/p unipolar hip arthroplasty; difficulty in walking Onset Date 09/07/21 M3 PT-IP Subjective Start: 09/08/21 08:35 Freq: Status: Active Protocol: Document 09/14/21 10:11 KS (Rec: 09/14/21 11:06 KS [id number]) Subjective Physical Therapy Visit Type Type Treatment Note Visit Start Time 10:11 Visit Stop Time 10:30 Total Visit Minutes 19 Notes Pts spouse present during treatment. Number of PROCESS PLANT OPERATOR Visits 1 Physical Therapy Visit Comments Patient Comments pt is agreeable to do PT M4 PT-IP Mobility and Gait Start: 09/08/21 08:35 Freq: Status: Active Protocol: Document 09/14/21 10:11 KS (Rec: 09/14/21 11:06 KS [id number]) PT-Bed Mobility Assessment Supine to Sit Supine to Sit Moderate Assistance,2 Person Assistance,Head of Bed Elevated Scooting Scooting to Edge of Bed Maximum Assistance PT-Transfer Assessment Sit to and From Stand Sit to and from Stand Moderate Assistance,2 Person Assistance,Use of Upper Extremities Equipment Transfer Assistive Device Gait Belt,Front Wheeled Walker Orthotic/Prosthetic Devices or Brace: No Transfers Transfer Destination Chair Transfer Technique pt ambulated w/ FWW Transfer Ability Level of Assist Moderate Assistance,2 Person Assistance,Use of Upper Extremities Comments Mobility Comments Pt in bed upon arrival from therapy w/ spouse in room. Unable to recall post hip precautions. Able to perform 1x10 bilateral ankle pumps and quad sets and 1x5 SLR. Mod A x2 for sup<>sit and Max A for scooting EOB. Pt sit<>stand Mod A x2 w/ FWW and performed stand step pivot Mod A x2 from bed to chair w/ FWW management and cues for sequencing. Pt impulsive and incoordinated w/ movements. She then ambulated ~8 ft w/ FWW Mod A and chair follow. Reported fatigue following ambulation. Pt left in chair w / all needs in reach and alarm on. Gait Assessment Gait Gait Assistance Required: Moderate Assistance,1 Person Assist Distance (Feet) 10 Able to Maintain Weight Bearing Status Yes During Gait Assistive Devices Assistive Device Gait Belt,Front Wheeled Walker Orthotic/Prosthetic Devices or Brace: Yes Gait Deviations General Gait Pattern Antalgic,Decreased Stride Length,Decreased Feet Clearance,Flexed Trunk,Wide Based Gait Factors Limiting Gait Function Factors Limiting Gait Function Decreased Activity Tolerance, Decreased Strength,Difficulty Following Directions, Incoordination,Poor Balance, Poor Safety Awareness Comments Gait Comments Pt ambulated ~10 ft total w/ FWW and Mod A. She demonstrated poor use of FWW and was incoordinated w/ step sequencing require verbal and tactile cues. Pt ambulates w/ flexed trunk and WBOS with decreased astride and foot clearance due to weakness. PT-Balance Assessment Sitting Balance and Reactions Static Sitting Balance Ability Fair Dynamic Sitting Balance Ability Poor Standing Balance and Reactions Static Standing Balance Ability Poor Dynamic Standing Balance Ability Poor Device Used FWW M5 PT-IP Objective Assessments Start: 09/08/21 08:35 Freq: Status: Active Protocol: Document 09/12/21 10:45 AB (Rec: 09/12/21 12:59 AB [id number]) Orientation Orientation/Cognition Level of Alertness Confusional State Orientation Name Language Function Ability Irish as Second Language Safety Awareness Decreased Safety Awareness Memory Description Short Term Impaired Gross Range of Motion Lower Extremity ROM Assessment Within Functional Limits Strength Lower Extremity Strength Assessment Bilaterally Impaired Comments Strength Comments LLE: 4-/5 RLE: 3+/5 Sensation Assessment Sensation Gross Sensation WNL Muscle Tone Muscle Tone WNL Yes M6 PT-IP Treatment Start: 09/08/21 08:35 Freq: Status: Active Protocol: Document 09/14/21 10:11 KS (Rec: 09/14/21 11:06 KS [id number]) Physical Therapy Treatment Exercises Exercises Ankle Pumps,Gluteal Sets, Straight Leg Raises Education Education Provided Precautions,Safety Other Treatments Other Treatment Performed Pt unable to recall precautions, pts able to recall and remind pt of 2/3 precautions (no add). M7 PT-IP Assessment and Plan Start: 09/08/21 08:35 Freq: Status: Active Protocol: Document 09/14/21 10:11 KS (Rec: 09/14/21 11:06 KS [id number]) PT Summary Assessment and Plan Potential Rehabilitation Potential Fair Summary Impairments Pain,ROM,Strength,Balance, Coordination,Sensation,Tone, Cognition,Bed Mobility, Transfers,Gait,Activity Tolerance Progress Towards Goals Slow Progress due to Medical Issues,Slow Progress due to Activity Tolerance Assessment Summary Pt showed some improvement w/ mobility and activity tolerance this AM, but continues to require Mod A x2 and frequent verbal and tactile cues during transfers. Able to tolerate slight increase in ambulation distance but reported fatigue following. She is a high fall risk due to incoordination, poor safety awareness, poor use of FWW, and weakness. She will require SNF to improve strength and stability. Goals Bed Mobility Goal Minimal Assistance Transfer Goal Minimal Assistance,Front Wheeled Walker Gait Goal Minimal Assistance,Front Wheel Walker Gait Distance 50 Other Goals improve bed mobility, transfers SBA using FWW improve ambulation using FWW SBA 100 ft Days to Meet Goals 10 Frequency of Treatment Frequency Of Treatment Twice a Day Treatment Plan Physical Therapy Treatment Plan Bed Mobility Training,Transfer Training,Gait Training, Therapeutic Exercise,Balance Retraining,Post Op Education, Discharge Planning,Hot or Cold Pack,Neuromuscular Re-ed, Coordination Retraining,Manual Therapy Precautions Posterior Hip Precautions No Hip Flexion > 90 degrees,No Hip Internal Rotation,No Hip Adduction Weight Bearing Status Weight Bearing Status Weight Bear as Tolerated Allowed Weight Bearing Amount (enter % RLE WBAT or #) (%) Recommendations To Nursing Amount of Assist Needed PT/OT Assist Only,Mechanical Lift Discharge Recommendations PT Discharge Recommendations SNF Rehab Transportation Needs at Discharge Wheelchair/Cabulance
[2021-09-14] MEDS: carvediloL 3.125 MG TABLET 6.25 MG PO (12:12)
--- NOTE | 2021-09-14 12:35 | P.DS_ITS ---
History of Present Illness History of Present Illness Date Patient Seen: 09/14/21 Chief complaint: Right hip pain s/p GLF Narrative: ?THIS IS AN 80-YEAR-OLD FEMALE WHO CAME TO THE HOSPITAL AFTER A GROUND LEVEL FALL. ?? IT WAS REPORTED TO OUR STAFF THAT PATIENT FELL THIS MORNING AND COMPLAIN OF SIGNIFICANT PAIN ?WHEN BROUGHT TO THE ER, WORKUP ? IS SHOWING A FRACTURE ON THE RIGHT HEEL. ? ORTHOPEDIC SURGERY HAS BEEN MADE AWARE.? AND WILL SEE THE PATIENT ON CONSULT. ? LABS AND VITAL SIGNS ARE FAIRLY STABLE. ? SOME POSSIBLE ACUTE ON CHRONIC KIDNEY DISEASE I APPRECIATED AND A CHEMISTRY PANEL DONE THIS MORNING. ? DOES REPORTED PAST MEDICAL HISTORY SIGNIFICANT FOR HYPERTENSION WELL CHRONIC ATRIAL FIBRILLATION? AND COPD Discharge Providers Provider Date of admission: 09/07/21 08:12 Discharge Date: 09/14/21 Consults: 09/07/21 08:04 Consult to Orthopedic Surgery Stat Comment: Consulting Provider: Joyce Adrian Reason for consultation: hip fracture Has provider been notified: Yes 09/07/21 08:35 Consult to Discharge Planning Routine Comment: Consult to Occupational Therapy Evaluate & Treat Comment: Physician Instructions: Evaluate and treat Consult to Physical Therapy Evaluate & Treat Comment: Physician Instructions: Evaluate and Treat 09/07/21 11:11 Consult to Respiratory Therapy Evaluate & Treat Comment: COPD, Fem Neck fx Physician Instructions: Evaluate and treat 09/07/21 16:20 Consult to Dietitian, Adult Routine Comment: Reason For Exam: [place]ese[place] score 09/11/21 15:21 Consult to Anesthesiology Routine Comment: Consulting Provider: Anesthesiologist Reason for consultation: Regional block for post operative pain control 09/11/21 18:12 Consult to Discharge Planning Routine Comment: Consult to Physical Therapy Evaluate & Treat Comment: Physician Instructions: post op TORY protocol Consult to Respiratory Therapy Evaluate & Treat Comment: Physician Instructions: Evaluate and treat 09/12/21 12:54 Consult to Occupational Therapy Evaluate & Treat Comment: Physician Instructions: Evaluate and treat Discharge provider: Jil Garcia MD Summary Hospital Course Discharge Diagnosis: 1. Right hip fracture status post unipolar prosthesis 2. Atrial fibrillation 3. Hypertension 4. Hyperlipidemia 5. COPD 6. Dementia 7. Chronic kidney disease stage 4 Hospital Course: Patient is an 80-year-old female who was admitted to the hospital for treatment of a right femoral neck fracture. Patient was previously on Eliquis and this needed to be held for 72 hours prior to her surgical procedure. She ultimately went to the OR for a unipolar prosthesis. She tolerated the procedure without difficulty. The patient postoperatively developed some hypotension. She had some pre renal azotemia with that. With IV hydration she had some improvement in her renal function. The patient had some wheezing. IV hydration was discontinued. Patient was able to work with physical therapy and occupational therapy. She was deemed appropriate for transfer to senior care. Status at Discharge Cognitive/behavioral status at discharge: confused Functional status at discharge: uses cane/walker Overall status at discharge: patient is not back to baseline Exam Vital Signs (past 8 hours): - 09/14/21 05:14 09/14/21 06:59 09/14/21 07:30 Temperature 97.3 F L 97.7 F Pulse Rate 83 73 77 Respiratory Rate 16 16 17 Blood Pressure 122/54 L 115/66 Pulse Oximetry 96 93 96 09/14/21 12:12 Temperature Pulse Rate 85 Respiratory Rate Blood Pressure 119/66 Pulse Oximetry Oxygen Delivery Method Room Air Oxygen Flow Rate 0 Narrative Exam Narrative: Pleasant female in no obvious distress Resp Other: Decreased breath sounds with end-expiratory wheeze Cardio Other: Cardiac exam: Irregularly irregular normal S1-S2 GI Other: Abdomen soft and nontender Extrem Other: Right hip with dressing in place Objective Labs Result Diagrams: 09/14/21 05:07 09/14/21 05:07 Labs: Laboratory Results - last 24 hr 09/14/21 09/14/21 05:07 05:07 WBC 7.6 RBC 2.84 L Hgb 9.5 L Hct 28.2 L MCV 99.4 MCH 33.3 MCHC 33.5 RDW 16.1 H Plt Count 223 Neut % (Auto) 83.4 H Lymph % (Auto) 8.2 L [place] % (Auto) 7.7 Eos % (Auto) 0.5 L Baso % (Auto) 0.2 Neut # (Auto) 6300 Lymph # (Auto) 600 L [place] # (Auto) 600 Eos # (Auto) 0 Baso # (Auto) 0 Sodium 140 Potassium 4.1 Chloride 115 H Carbon Dioxide 19 L BUN 58 H Creatinine 2.19 H Estimated GFR 21.5 L BUN/Creatinine Ratio 26.5 H Glucose 110 Calcium 7.8 L Troponin I 0.033 [facility] Medical History Atrial fibrillation Chronic obstructive pulmonary disease Social History marital status: household members: spouse lives independently: Yes Smoking Status: Never smoker quit status: quit date established (1999) alcohol intake: current Discharge Assessment & Plan Assessment and Plan Assessment: 1. Status post unipolar prosthesis for right femoral neck fracture 2. Chronic kidney disease stage 3 3. Atrial fibrillation 4. COPD Plan of Treatment: Discharge to senior care Medications as prescribed Discharge Plan Discharge Plan Patient Disposition: SNF Transfer to: [facility] Consult as needed: Dental, Hearing, Mental health, Podiatry and Vision Discharge orders & Medications Prescriptions: New oxycodone 5 mg Tablet 5 mg PO Q3HR PRN (Reason: Pain, Moderate (4-6)) Qty: 30 0RF Continued amiodarone 200 mg Tablet 200 mg PO DAILY 0RF potassium chloride 10 mEq Tablet Extended Release 10 meq PO DAILY 0RF lisinopril 10 mg Tablet 10 mg PO BID 0RF Eliquis 2.5 mg Tablet 2.5 mg PO BID 0RF carvedilol [Coreg] 6.25 mg Tablet 6.25 mg PO BID 0RF Rx Instructions: must administer with a meal/food furosemide 40 mg Tablet 40 mg PO DAILY 0RF simvastatin 10 mg Tablet 10 mg PO QPM 0RF Spiriva with HandiHaler 18 mcg Capsule, W/Inhalation Device 1 cap INHALATION DAILY 0RF Rx Instructions: puncture 1 cap using device; one dose = 2 inhalations fluticasone propion-salmeterol [Advair Diskus] 250-50 mcg/dose Blister With Device 1 inh INHALATION BID 0RF Follow up/Referrals: Jarad Richardson MD [Physician] - Discharge Health Status Multidrug resistant organism: No MDRO Diet/Activity/Treatments Diet: Low-sodium Liquid consistency: Normal/Thin Food texture: Regular Activity: weight bearing as tolerated posterior hip precautions [facility] Reason for rehabilitation: Post-operative therapy Rehab type: Physical therapy and Occupational therapy
--- NOTE | 2021-09-14 13:06 | PT-IP ANOTE ---
Attempted to see pt at 13:06, pt stated she would rather not participate when is absent and would like to rest prior to transfer to SNF this PM.
[2021-09-14 13:49] LABS: COVID19 -Nasal RAPID Negative (Negative)
--- NOTE | 2021-09-14 15:16 | OT.IPNOTE ---
Pt being discharged to SNF today. Able to go over what to except and questions to ask for her pt's for rehab needs. No charge.
--- NOTE | 2021-09-14 17:49 | PC.NURSE ---
Pt A&Ox2, Understands simple commands in Afghan. at bedside this a.m. Helpful and supportive. Incision to R hip C/D/I no drainage. +1 edema to RLE, some swelling per baseline in ankles. Pt with labored breathing noted with exertion, and some wheezes. Tolerating RA well and recieving breathing treatment. Recieved discharge orders to SNF and patient cleared for discharge, COVID swab completed with negative results. Patient and agree and acknowledge understanding of discharge planning. Report called to Ad[facility]. Pt's prisca lee'alex at 1400 reported to Adilene that patient is due to void by 2200 this evening. Discharge packet given to transporter and patient escorted to [facility] at 1520 this afternoon.
--- NOTE | 2021-09-15 08:57 | CM.DPNOTE ---
Late Entry DC Note Worked w/March at [facility] yesterday who accepted patient for admission. Aniyah at [facility] asked for updated clinical before acceptance. Inevitably, reviewed acceptance from [facility] w/ spouse Catracho and he was agreeable. w/c p/u was arranged for 1500, JEAN-PAUL Munoz updated. COVID updated, PASRR completed and faxed. All completed and signed DC ppk faxed by ALDAIR Carvalho to [facility] Patient unvaccinated so needed to be in isolation once admitted to [facility]. Plan: DC to [facility] via w/c yesterday, s/p hip repair JW
== END 2021-09-14 15:20 | DRG 522 ==
LOC: ED 08:10 → AC 08:16
PROVIDERS: Emergency Medicine; Internal Medicine; Orthopaedic Surgery; Admitting Provider Hospitalist; Emergency Provider Emergency Medicine; Referring Provider Emergency Medicine; Visit Provider Hospitalist
PROC: 0SRR0JZ Replacement of Right Hip Joint, Femoral Surface with Synthetic Substitute, Open Approach (ICD-10-PCS; CPT 27125; principal; 2021-09-11 14:15)
DX: S72.011A Unspecified intracapsular fracture of right femur, initial encounter for closed fracture (principal); N17.9 Acute kidney failure, unspecified; I48.21 Permanent atrial fibrillation; N39.0 Urinary tract infection, site not specified; F03.91 Unspecified dementia, unspecified severity, with behavioral disturbance; Z79.01 Long term (current) use of anticoagulants; J44.9 Chronic obstructive pulmonary disease, unspecified; B96.20 Unspecified Escherichia coli [E. coli] as the cause of diseases classified elsewhere; I95.9 Hypotension, unspecified; I10 Essential (primary) hypertension; E78.5 Hyperlipidemia, unspecified; I49.3 Ventricular premature depolarization; W01.0XXA Fall on same level from slipping, tripping and stumbling without subsequent striking against object, initial encounter; Z20.822 Contact with and (suspected) exposure to COVID-19
CPT/HCPCS: 36415; 36591; 71045; 73502; 73700; 74018; 80048; 80053; 81001; 82550; 82553; 82962; 83880; 84100; 84484; 85014; 85018; 85025; 87077; 87086; 87186; 87635; 93005; 94640; 94760; 96361; 96374; 97116; 97162; 97165; 97530; 99284; C1776; C9803; C9290; J0171; J0690; J0696; J1100; J1644; J2270; J2405; J2704; J3010

== ENCOUNTER → 2021-09-23 20:17 | Outpatient (ROUT) | payer MEDICARE, OTHER, SELFPAY ==
[2021-09-07 11:54] VITALS: BMI 23.4
[2021-09-23 20:41] LABS: Appearance Urine UA CLEAR; Bilirubin Urine UA NEGATIVE (NEGATIVE); Color Urine UA YELLOW; Glucose Urine UA NEGATIVE (Negative); Ketones Urine UA NEGATIVE (NEGATIVE); Leukocyte Esterase Urine UA NEGATIVE (NEGATIVE); Nitrite Urine UA NEGATIVE (Negative); Occult Blood Urine UA TRACE-INTACT (Negative); Protein Urine UA NEGATIVE (Negative); Urobilinogen Urine UA 0.2 E.U./dL (0.2)
[2021-09-23 21:08] LABS: Bacteria Urine Occasional (0-1); RBC Urine 0-1/HPF (0-5/HPF); WBC Urine 0-1/HPF (0-5/HPF)
== END ==
DX: D72.829 Elevated white blood cell count, unspecified (principal)
CPT/HCPCS: 81001; 87086